=== PATIENT | female | born 1990 | race Caucasian/White ===

== ENCOUNTER → 2020-02-24 | Outpatient (CLI) | payer OTHER, SELFPAY ==
[2020-02-24 09:31] LABS: Bacteria 0 SEEN /hpf (None Seen); Mucous, Urine 0 SEEN /hpf (<or=2+); Red Blood Cells-Urine 0 SEEN /hpf (0-5); Squamous Epithelial Cells - UA 0 SEEN /hpf (5-10); White Blood Cells 0 SEEN /hpf (0-5)
[2020-02-24 10:30] LABS: Color, Urine Yellow (Yellow); Glucose, Dipstick Normal (Normal); Ketone-Dipstick Negative (Negative); Leukocyte Esterase-Dipstick Negative /ul (Negative); Nitrite-Dipstick Negative (Negative); Occult Blood-Urine Negative /ul (Negative); Protein-Dipstick Negative (Negative); Urine Bilirubin Dipstick Negative (Negative); Urine Clarity Clear (Clear); Urine Urobilinogen Normal (Normal); Urine pH 6.5 (5.0 - 8.0)
== END | disposition home or self-care (01) ==
LOC: LABSPEC 09:24
PROVIDERS: PCP Family Medicine; Referring Provider Family Medicine; Visit Provider Family Medicine
DX: N39.0 Urinary tract infection, site not specified (principal)
CPT/HCPCS: 81001; 87086

== ENCOUNTER → 2020-03-28 | Outpatient (CLI) | payer OTHER, SELFPAY ==
[2020-03-28 15:23] VITALS: BMI 20.7
[2020-04-02 15:26] LABS: HPV Reflexed? NOT INDICATED
== END | disposition home or self-care (01) ==
LOC: LABSPEC 16:40
PROVIDERS: PCP Family Medicine; Referring Provider Obstetrics & Gynecology; Visit Provider Obstetrics & Gynecology
DX: Z12.4 Encounter for screening for malignant neoplasm of cervix (principal)
CPT/HCPCS: 88175; G0145

== ENCOUNTER → 2020-08-29 | Outpatient (CLI) | payer OTHER, SELFPAY ==
[2020-08-29 12:53] VITALS: BMI 20.7
[2020-08-29 13:28] LABS: Amphetamine Urine VISTA NEGATIVE (<1000 ng/mL); Barbiturate Urine VISTA NEGATIVE (< 200 ng/mL); Benzodiazepine Urine VISTA NEGATIVE (< 200 ng/mL); Cocaine Urine VISTA NEGATIVE (< 300 ng/mL); Ecstacy Urine VISTA NEGATIVE (< 500 ng/mL); Methadone Urine VISTA NEGATIVE (< 300 ng/mL); PCP Urine VISTA NEGATIVE (< 25 ng/mL); THC Urine VISTA NEGATIVE (< 50 ng/mL); Vista UDS pH Range 6
[2020-09-04 12:36] LABS: HPV Reflexed? NOT INDICATED
== END | disposition home or self-care (01) ==
LOC: LABSPEC 12:56
PROVIDERS: PCP Family Medicine; Referring Provider Obstetrics & Gynecology; Visit Provider Obstetrics & Gynecology
DX: Z34.90 Encounter for supervision of normal pregnancy, unspecified, unspecified trimester (principal); Z12.4 Encounter for screening for malignant neoplasm of cervix
CPT/HCPCS: 80307; 87086; 87088; 87491; 87591; 88142

== ENCOUNTER → 2020-08-30 | Outpatient (CLI) | payer OTHER, SELFPAY ==
[2020-08-29 12:53] VITALS: BMI 20.7
[2020-08-30 17:38] LABS: Absolute Lymphocyte Count 2.07 X10^3/uL (0.83-4.51); Absolute Neutrophil Count 4.7 X10^3/uL (2.0-7.7); Basophil# 0.04 X10^3/uL; Basophil% 0.5 % (0-1); Eosinophil# 0.42 X10^3/uL; Eosinophils% 5.4 % (0-5); Hematocrit 37.2 % (37-47); Hemoglobin 12.2 g/dL (12.0-15.0); Lymphocyte # 2.07 X10^3/ul (4.0); Lymphocyte % 26.6 % (19-41); Mean Corp Hgb Conc 32.8 g/dL (32-36); Mean Corpuscular Hgb 30.6 pg (27.0-32.0); Mean Corpuscular Volume 93.2 fL (81-99); Mean Platelet Vol. 9.7 fl (6.2-12.0); Monocyte# 0.53 X10^3/uL; Monocyte% 6.8 % (0-10); NRBC Flagged by Analyzer 0 % (0-5); Neutrophil # 4.71 X10^3/uL (2.7-7.7); Neutrophil % 60.4 % (47-70); Platelet Count 333 K/mm3 (150-450); RBC Distribution Width CV 11.9 % (11.6-14.6); RBC Distribution Width SD 41.1 fl (35.1-43.9); Red Blood Count 3.99 M/mm3 (4.2-5.4); White Blood Count 7.8 K/mm3 (4.4-11.0)
[2020-09-02 10:25] LABS: HIV - WCH Non-Reactive (Nonreactive); Hepatitis B Surface Antigen Non-Reactive (Nonreactive); Hepatitis C Antibody Non-Reactive (Nonreactive); Rubella IgG Reactive (Nonreactive)
[2020-09-05 03:02] LABS: Rapid Plasmin Reagin (RPR) NONREACTIVE (NONREACTIVE)
== END | disposition home or self-care (01) ==
LOC: LABSPEC 16:49
PROVIDERS: PCP Family Medicine; Referring Provider Obstetrics & Gynecology; Visit Provider Obstetrics & Gynecology
DX: Z34.81 Encounter for supervision of other normal pregnancy, first trimester (principal); Z31.430 Encounter of female for testing for genetic disease carrier status for procreative management
CPT/HCPCS: 36415; 85025; 86592; 86703; 86762; 86803; 86850; 86900; 86901; 87340

== ENCOUNTER → 2021-01-02 15:24 | Outpatient (CLI) | payer OTHER, BC, SELFPAY ==
[2020-12-19 15:47] VITALS: BMI 24.0
[2021-01-02 15:51] LABS: Absolute Lymphocyte Count 1.47 X10^3/uL (0.83-4.51); Absolute Neutrophil Count 7.7 X10^3/uL (2.0-7.7); Basophil# 0.04 X10^3/uL; Basophil% 0.4 % (0-1); Eosinophil# 0.44 X10^3/uL; Eosinophils% 4.2 % (0-5); Hematocrit 31.3 % (37-47); Hemoglobin 10.2 g/dL (12.0-15.0); Lymphocyte # 1.47 X10^3/ul (0.83-4.51); Lymphocyte % 13.9 % (19-41); Mean Corp Hgb Conc 32.6 g/dL (32-36); Mean Corpuscular Hgb 31.7 pg (27.0-32.0); Mean Corpuscular Volume 97.2 fL (81-99); Monocyte# 0.79 X10^3/uL; Monocyte% 7.5 % (0-10); NRBC Flagged by Analyzer 0 % (0-5); Neutrophil # 7.74 X10^3/uL (2.7-7.7); Neutrophil % 73.1 % (47-70); Platelet Count 285 K/mm3 (150-450); RBC Distribution Width SD 46.1 fl (35.1-43.9); Red Blood Count 3.22 M/mm3 (4.2-5.4); White Blood Count 10.6 K/mm3 (4.4-11.0)
[2021-01-02 16:13] LABS: Glucose Challenge Gest 1H 50g 109 mg/dL (70-140)
== END ==
PROVIDERS: PCP Family Medicine; Referring Provider Nurse Practitioner Women's Health; Visit Provider Nurse Practitioner Women's Health
DX: Z34.02 Encounter for supervision of normal first pregnancy, second trimester (principal); Z13.1 Encounter for screening for diabetes mellitus
CPT/HCPCS: 36415; 82950; 85025

== ENCOUNTER → 2021-03-06 | Outpatient (CLI) | payer OTHER, BC, SELFPAY ==
[2021-03-06 15:50] VITALS: BMI 29.9
[2021-03-24 12:22] VITALS: BMI 29.7
== END | disposition home or self-care (01) ==
PROVIDERS: PCP Family Medicine; Referring Provider Obstetrics & Gynecology; Visit Provider Obstetrics & Gynecology
DX: Z34.93 Encounter for supervision of normal pregnancy, unspecified, third trimester (principal)
CPT/HCPCS: 87081

== ENCOUNTER 2021-03-24 12:05 | Outpatient (CLI) | payer OTHER, BC, SELFPAY ==
[2021-03-24] VITALS (10 sets, daily range): BP systolic 115–136; BP diastolic 76–85; PULSE 76–82; TEMP 36.7–36.8; O2SAT 98; BMI 29.9; BMI 29.7
[2021-03-24] MEDS: 0.9% Saline Lock 10 ML Syringe IV (12:40)
[2021-03-24 13:03] LABS: Hematocrit 32.1 % (37-47); Hemoglobin 10.3 g/dL (12.0-15.0); Mean Corp Hgb Conc 32.1 g/dL (32-36); Mean Corpuscular Hgb 29.9 pg (27.0-32.0); Mean Platelet Vol. 10.8 fl (6.2-12.0); Platelet Count 225 K/mm3 (150-450); RBC Distribution Width CV 13.4 % (11.6-14.6); RBC Distribution Width SD 45.7 fl (35.1-43.9); Red Blood Count 3.45 M/mm3 (4.2-5.4); White Blood Count 9.6 K/mm3 (4.4-11.0)
[2021-03-24 13:12] LABS: Protein, Urine (Random) 17.8 mg/dL (<11.9); Protein:Creat Ratio 605 mg/g CRE (0-200)
[2021-03-24 13:17] LABS: AST(SGOT) 25 U/L (15-37); Alanine Aminotransfer ALT/SGPT 26 U/L (13-56); Creatinine, Serum 0.48 mg/dL (0.55-1.02); EST Glomerular Filtration Rate 162 mL/min (>60); Est Glom Filt Rate - Afr Amer 196 mL/min (>60); Estimated Creatinine Clearance 141.77 ml/min
--- NOTE | 2021-03-25 18:36 | OB.TRI.PN ---
Progress Notes Date of Service: 03/24/21 Progress Note: Patient presents for triage evaluation secondary to elevated BP. BPs normal. PreE labs negative aside from elevated P:C FHT: Moderate variability reactive no decelerations category I tracing [place]: Contractions Assessment and plan: Reactive NST, reassuring maternal and status patient discharged to home to follow-up tomorrow for BP check. See problem list details for additional plan information. Laboratory Studies: Laboratory Tests 03/24/21 03/24/21 03/24/21 Range/Units 12:40 12:40 12:40 WBC 9.6 (4.4-11.0) K/mm3 RBC 3.45 L (4.2-5.4) M/mm3 Hgb 10.3 L (12.0-15.0) g/dL Hct 32.1 L (37-47) % MCV 93.0 (81-99) fL MCH 29.9 (27.0-32.0) pg MCHC 32.1 (32-36) g/dL RDW Std Deviation 45.7 H (35.1-43.9) fl RDW Coeff of Judi 13.4 (11.6-14.6) % Plt Count 225 (150-450) K/mm3 MPV 10.8 (6.2-12.0) fl Creatinine 0.48 L (0.55-1.02) mg/dL Estim Creat Clear Calc 141.77 ml/min Est GFR (MDRD) Af Amer 196 (>60) mL/min Est GFR (MDRD) Non-Af 162 (>60) mL/min Uric Acid 4.0 (2.6-6.0) mg/dL AST 25 (15-37) U/L ALT 26 (13-56) U/L U Random Total Protein 17.8 H (<11.9) mg/dL Urine Creatinine 29.40 (NO RANGE EST.) mg/dL Protein/Creatinin Ratio 605 H (0-200) mg/g CRE Charges/Coding Procedures Urinary/Genital 52xxx-59xxx: 74881-54 non-stress test Interp
== END 2021-03-24 14:27 | disposition home or self-care (01) ==
LOC: WPOUT 12:07 → WP 12:07
PROVIDERS: PCP Family Medicine; Visit Provider Obstetrics & Gynecology
DX: O26.899 Other specified pregnancy related conditions, unspecified trimester (principal); R03.0 Elevated blood-pressure reading, without diagnosis of hypertension; Z3A.00 Weeks of gestation of pregnancy not specified
CPT/HCPCS: 36415; 59025; 59050; 82565; 82570; 84156; 84450; 84460; 84550; 85027; 87426; 99218; A4216; G0378

== ENCOUNTER 2021-03-25 11:45 | Inpatient (IN) | payer OTHER, BC, SELFPAY ==
[2021-03-25] VITALS (38 sets, daily range): BP systolic 113–145; BP diastolic 58–88; PULSE 68–101; TEMP 36.6–37.1; O2SAT 97–100; BMI 29.9; BMI 29.3
[2021-03-25] MEDS: 0.9% Saline Lock 10 ML Syringe IV ×2 (11:05→16:11)
[2021-03-25 11:11] LABS: Protein, Urine (Random) 10.6 mg/dL (<11.9); Protein:Creat Ratio 592 mg/g CRE (0-200)
--- NOTE | 2021-03-25 11:20 | NURSING ---
Exam per MD in office yesterday, 03/24/21
[2021-03-25 11:21] LABS: Hematocrit 31.9 % (37-47); Hemoglobin 10.2 g/dL (12.0-15.0); Mean Corpuscular Hgb 30.2 pg (27.0-32.0); Mean Corpuscular Volume 94.4 fL (81-99); Mean Platelet Vol. 10.5 fl (6.2-12.0); Platelet Count 215 K/mm3 (150-450); RBC Distribution Width CV 13.4 % (11.6-14.6); RBC Distribution Width SD 46.4 fl (35.1-43.9); Red Blood Count 3.38 M/mm3 (4.2-5.4); White Blood Count 10.4 K/mm3 (4.4-11.0)
[2021-03-25 11:32] LABS: AST(SGOT) 20 U/L (15-37); Alanine Aminotransfer ALT/SGPT 25 U/L (13-56); Creatinine, Serum 0.47 mg/dL (0.55-1.02); EST Glomerular Filtration Rate 166 mL/min (>60); Est Glom Filt Rate - Afr Amer 200 mL/min (>60); Estimated Creatinine Clearance 144.78 ml/min; Uric Acid 3.9 mg/dL (2.6-6.0)
--- NOTE | 2021-03-25 12:48 | HP.PCM.OB_ITS ---
HPI - General General Date of Admission: 03/25/21 HPI Narrative OH LEWIS, is a 30 F at 39/4 who presents with elevated blood pressure. Blood pressure was elevated in the [facility] office and [facility] office yesterday then was elevated on a BP check today. Had elevated P:C ratio yesterday and again today. BPs normal in triage, but with elevated BPs in multiple offices and elevated P:C decision was made to admit for induction of labor for PreE without severe features. Asymptomatic aside from mild frontal headache. Maternal Data Information MARI Calculator Estimated Delivery Date Method Current WG Current Estimate 03/28/21 LMP (Certain) 39w 4d Other Estimates 03/29/21 Ultrasound #1 39w 3d PFSH PFSH Medical History Recurrent UTI Home Medications multivitamin no.47-iron fum 27 mg-folate no.1 1 mg-dha 300 mg capsule 1 cap PO DAILY 03/28/20 [History Last Taken 03/24/21 21:30 1 capsule] acetaminophen [Tylenol Extra Strength] 500 mg PO Q6H PRN 03/24/21 [History Last Taken 03/24/21 03:30] Allergy/AdvReac Type Severity Reaction Status Date / Time No Known Allergies Allergy Verified 03/25/21 11:17 Family History Grandfather Hypertension Surgical History nitza (~2004) Social History adopted: No household members: spouse housing: house current occupational status: employed current occupation: [employer] current occupational exposures/hazards: No pets and animals: No history of recent travel: Yes sexually active: No Smoking Status: Never smoker second hand exposure: Yes alcohol intake: current alcohol intake frequency: a few times a month details: not while substance use type: does not use seatbelt use: always do you feel safe at home: Yes additional social history: [place] History 1 Elective abortions Hx Para 0 Spontaneous abortions Hx # Term Pregnancies Ectopic pregnancies Hx # Pregnancies Multiple births # of living children Visit Details Expected Delivery Route/Plan Labor Preferences- CB/BF classes: done labor support person: Roberto mom- Rebeca labor intervention preferences: open pain management options preferred: epidural cut cord/dad catch: yes : yes PP control planned: discussed possible routes of delivery and associated risks: discussed possible delivery modalities and possible indications for each including R/B/A of , VAVD, and CS. questions answered. special requests: Plans covid status: non immune flu vaccine: given tdap vaccine: given rhogam: na LARC form signed: declined movement and labor precautions reviewed. Problem list reviewed and updated with the most current plan of care details and appropriate orders placed. Relevant counseling for the gestational age provided. Continue routine care and follow up unless otherwise noted in visit notes/problem list details OB Flowsheet Initial Weight: 120 lb Date -?-?-?-?-?-?-?-?-?-?-?-?- EGA Weight BP Urine Prot -?-?-?-?-?-?-?-?-?-?-?-?- Glucose FHR FuHt Pres Dilation -?-?-?-?-?-?-?-?-?-?-?-?- Effaced St Visit Note 08/29/20 -?-?-?-?-?-?-?-?-?-?-?-?- 9w 6d 123 lb (+3 lb) -?-?-?-?-?-?-?-?-?-?-?-?- 170 -?-?-?-?-?-?-?-?-?-?-?-?- SM- CRL 2.9 cm c ons with LMP 09/26/20 -?-?-?-?-?-?-?-?-?-?-?-?- 13w 6d 126 lb 2 oz (+6 lb 2 oz) 110/60 Negative -?-?-?-?-?-?-?-?-?-?-?-?- Negative 155 -?-?-?-?-?-?--?-?-?-?-?-?- SM- no vb crmap ing nl testing 10/24/20 -?-?-?-?-?-?-?-?-?-?-?-?- 17w 6d 131 lb 6 oz (+11 lb 6 oz) 100/60 Negative -?-?-?-?-?-?-?-?-?-?-?-?- Negative 146 -?-?-?-?-?-?-?-?-?-?-?-?- -No VB, LOF. N o concerns. MFM US anatomy 11/0411/21/20 -?-?-?-?-?-?-?-?-?-?-?-?- 21w 6d 140 lb 6 oz (+20 lb 6 oz) 100/58 Negative -?-?-?-?-?-?-?-?-?-?-?-?- Negative 153 -?-?-?-?-?-?-?-?-?-?-?-?- -Hx previa-den ies VB, LOF. Good FM. [facility] 11/19 for UTI and on antibiotic. Next US with MFM 12/23. 12/19/20 -?-?-?-?-?-?-?-?-?-?-?-?- 25w 6d 147 lb 6 oz (+27 lb 6 oz) 108/60 Trace -?-?-?-?-?-?-?-?-?-?-?-?- Negative 151 25 -?-?-?-?-?-?-?-?-?-?-?-?- -No VB, LOF. G ood FM. Discussed constipation. Traveling to [place] next week. 01/03/21 -?-?-?-?-?-?-?-?-?-?-?-?- 28w 0d 151 lb (+31 lb) 110/62 -?-?-?-?-?-?-?-?-?-?-?-?- 150 29 -?-?-?-?-?-?-?-?-?-?-?-?- - no vb lof go od fm no reular ctx cbc gct today tdap 01/16/21 -?-?-?-?-?-?-?-?-?-?-?-?- 29w 6d 152 lb 8 oz (+32 lb 8 oz) 110/80 Negative -?-?-?-?-?-?-?-?-?-?-?-?- Negative 145 29 -?-?-?-?-?-?-?-?-?-?-?-?- GP - no LOF, VB, DFM, ctx. Repeat US for previa next week. Going to [place] this weekend for long weekend. 01/30/21 -?-?-?-?-?-?-?-?-?-?-?-?- 31w 6d 159 lb (+39 lb) 102/68 Negative -?-?-?-?-?-?-?-?-?-?-?-?- Negative 140 32 -?-?-?-?-?-?-?-?-?-?-?-?- SM- no vb lof go od fm no reuglar ctx, has fu us for previa fu 02/13/21 -?-?-?-?-?-?-?-?-?-?-?-?- 33w 6d 160 lb (+40 lb) 130/68 -?-?-?-?-?-?-?-?-?-?-?-?- 145 34 -?-?-?-?-?-?-?-?-?-?-?-?- SM- no vb lof go od fm no regular ctx 02/27/21 -?-?-?-?-?-?-?-?-?-?-?-?- 35w 6d 136/80 Negative -?-?-?-?-?-?-?-?-?-?-?-?- Negative 140 37 -?-?-?-?-?-?-?-?-?-?-?-?- SM- no vb lof go od fm no regular ctx discussed deliveyr preferences 03/06/21 -?-?-?-?-?-?-?-?-?-?-?-?- 36w 6d 169 lb (+49 lb) 126/80 Negative -?-?-?-?-?-?-?-?-?-?-?-?- Negative 140 37 -?-?-?-?-?-?-?-?-?-?-?-?- GP - no LOF, VB, DFM, ctx. GBS today. 03/13/21 -?-?-?-?-?-?-?-?-?-?-?-?- 37w 6d 169 lb (+49 lb) 110/78 Negative -?-?-?-?-?-?-?-?-?-?-?-?- Negative 145 38 -?--?-?-?-?-?-?-?-?-?-?-?- SM- no vb lof go od fm no regular ctx 03/20/21 -?-?-?-?-?-?-?-?-?-?-?-?- 38w 6d 169 lb (+49 lb) 138/88 Negative -?-?-?-?-?-?-?-?-?-?-?-?- Negative 135 39 Cephalic 1 -?-?-?-?-?-?-?-?-?-?-?-?- 50 -2 GP - no LO F, VB, DFM, ctx. Denies complaints. 03/24/21 -?-?-?-?-?-?-?-?-?-?-?-?- 39w 3d 170 lb (+50 lb) 120/94 Negative -?-?-?-?-?-?-?-?-?-?-?-?- Negative 125 39 Cephalic 1 -?-?-?-?-?-?--?-?-?-?-?-?- 60 -2 GP - work in for elevated BP. BPs elevated in office - sent to triage for monitoring. 03/25/21 -?-?-?-?-?-?-?-?-?-?-?-?- 39w 4d 169 lb (+49 lb) 146/82 -?-?-?-?-?-?-?-?-?-?-?-?- -?-?-?-?-?-?-?-?-?-?-?-?- 03/25/21 -?-?-?-?-?-?-?-?-?-?-?-?- 39w 4d 168 lb 6.931 oz (+48 lb 6.931 oz) 130/77 113/68 119/76 120/80 133/88 -?-?-?-?-?-?-?-?-?-?-?-?- -?-?-?-?-?-?-?-?-?-?-?-?- NST FHR Rate Baby A Baseline: 130 Variability:: Moderate Accelerations:: 15 x 15 Decelerations:: None NST Reactive:: Yes FHR Category:: Category I Uterine Activity:: q5-9 min ROS Constitutional Constitutional: Reports headache(s); Denies body ache(s) or chills Eyes Eyes: Reports systems reviewed and no addt'l complaints, except as documented ENT HEENT: Reports systems reviewed and no addt'l complaints, except as documented Cardiovascular Cardiovascular: Reports systems reviewed and no addt'l complaints, except as documented Respiratory/Chest Respiratory/Chest: Reports systems reviewed and no addt'l complaints, except as documented Gastrointestinal Gastrointestinal: Reports systems reviewed and no addt'l complaints, except as documented Genitourinary Genitourinary: Reports systems reviewed and no addt'l complaints, except as documented Musculoskeletal Musculoskeletal: Reports systems reviewed and no addt'l complaints, except as documented Integumentary Integumentary: Reports systems reviewed and no addt'l complaints, except as documented Neurologic Neurologic: Reports systems reviewed and no addt'l complaints, except as documented Psychiatric Psychiatric: Reports systems reviewed and no addt'l complaints, except as documented Endocrine Endocrinology: Reports systems reviewed and no addt'l complaints, except as documented Hematologic/Lymphatic Hematologic/Lymphatic: Reports systems reviewed and no addt'l complaints, except as documented Allergic/Immunologic Allergic/Immunologic: Reports systems reviewed and no addt'l complaints, except as documented Vital Signs Vital Signs Vital Signs: 03/25/21 10:47 03/25/21 11:05 03/25/21 11:21 Temperature Temperature Source Pulse Rate 84 77 93 Blood Pressure 130/77 H 113/68 119/76 BP Systolic 130 113 119 BP Diastolic 77 68 76 03/25/21 11:35 03/25/21 11:50 03/25/21 12:00 Temperature 97.9 F Temperature Source Temporal Pulse Rate 85 92 Blood Pressure 120/80 133/88 H BP Systolic 120 133 BP Diastolic 80 88 Weight Weight: 168 lb 6.931 oz Body Mass Index (BMI) 29.3 Physical Exam Const alert, oriented x3, no apparent distress, average body habitus, healthy appearing and well nourished HEENT normocephalic and moist oral mucous membranes Head and Scalp: atraumatic Eyes PERRL and EOMs intact bilaterally Neck full ROM Resp normal respiratory effort, no retractions and no use of accessory muscles Cardio regular rate and regular rhythm GI soft to palpation, non-tender and non-distended Extremity normal to inspection and full ROM Skin no rashes or lesions noted Neuro no focal motor deficits and no sensory deficits noted Psych mental status grossly normal, affect normal, speech normal and activity/motor behavior normal Labs Labs Labs: Blood Type A POSITIVE Antibody Screen NEGATIVE Hct 31.9 % (37-47) L Hgb 10.2 g/dL (12.0-15.0) L Rubella IgG Antibody Reactive (Nonreactive) Hep Bs Antigen Non-Reactive (Nonreactive) HIV 1&2 Antibody Non-Reactive (Nonreactive) Glucose 1 Hr 50 gm 109 mg/dL (70-140) Miscellaneous Test Assessment & Plan (1) Ovarian cyst: COMMENT: Noted on anatomy scan 6mm x 6mm x 8mm needs follow up in 6 weeks (2) Recurrent UTI: COMMENT: sees Dr. Esqueda on an ATB to take after intercourse 11/21 tx per [facility]. Rpt urine culture next visit (3) Supervision of normal : QUALIFIERS: Normal : normal first Trimester: second trimester Qualified Code(s): Z34.02 - Encounter for supervision of normal first , second trimester COMMENT: PRR MARI 03/28/21 boy Spouse: Roberto (4) : QUALIFIERS: Weeks of gestation: 39 weeks Qualified Code(s): Z3A.39 - 39 weeks gestation of COMMENT: genetic- low risk and carrier- neg , declines afp screening. Anatomy normal other than previa. Fu 4 weeks. Will need pap at pp visit-pap came back unsat), Neg. GBS (5) Pre-eclampsia during in third trimester, antepartum: COMMENT: Diagnosed based on elevated BPs in [facility] offices 03/24 and [facility] office 03/25 with elevated P:C (6) Encounter for induction of labor: PLAN: Patient presents IOL, plan management for with cytotec. Pain management: plans epidural. GBS negative. Management of any complications: none I have reviewed the [facility] and made any clinically relevant updates.
[2021-03-25] MEDS: miSOPROStol 25 MCG TABLET VAGINAL (13:24)
[2021-03-25 15:55] LABS: Chlamydia Trachomatis by PCR Negative (Negative); Neisserai gonorrhoeae by PCR Negative (Negative); Probe Check PASS; Sample Adequacy Control PASS; Specimen Processing Control PASS
[2021-03-25] MEDS: Lactated Ringers 1,000 ML 50 ML IV (16:11)
[2021-03-25] MEDS: Lactated Ringers 500 ML 999 ML IV ×2 (17:42→20:40)
[2021-03-25] MEDS: 0.9% Normal Saline Single 100 ML IV.SOLN. INTRA-UTER (18:56)
[2021-03-25] MEDS: fentaNYL-bupivacaine (epidural) 100 ML BAG EPIDURAL (20:59)
[2021-03-25 23:33] LABS: ROM Internal Control Test YES-OK TO RESULT pt. (Internal QC)
[2021-03-25 23:34] LABS: ROM Patient Test POSITIVE (Negative)
[2021-03-26] VITALS (28 sets, daily range): BP systolic 113–146; BP diastolic 58–93; PULSE 76–127; TEMP 37.7; O2SAT 83–100
[2021-03-26] MEDS: Lactated Ringers 1,000 ML 200 ML IV ×4 (00:58→16:11)
[2021-03-26] MEDS: fentaNYL-bupivacaine (epidural) 100 ML BAG EPIDURAL ×5 (01:36→20:10)
[2021-03-26] MEDS: Lactated Ringers 500 ML 999 ML IV (01:37)
--- NOTE | 2021-03-26 08:38 | PCM.PN.BLA ---
Progress Note Patient seen and examined this morning. Patient comfortable with epidural. Previous exam at 0500 was 5cm, but with cervical swelling circumferentially. Cervix 5/90/0 with swelling only present on anterior lip. IUPC placed. Will start pitocin if MVUs inadequate. FHT Cat I. Continue current plan of care.
[2021-03-26] MEDS: Oxytocin 30 units/NS 500 ml 30 UNITS/500 ML IV.SOLN IV (09:44)
[2021-03-26] MEDS: Ondansetron 4 MG/2 ML Vial IV (16:06)
[2021-03-26] MEDS: DiphenhydrAMINE 50 MG/ML Syringe 25 MG IV (21:11)
[2021-03-26] MEDS: 0.9% Saline Lock 10 ML Syringe IV (21:11)
--- NOTE | 2021-03-26 23:37 | PN_ITS ---
Progress Note Came to continue to reevaluate patient. Patient has been 9 cm since 5 PM. At this point, cervix has begun to become extremely swollen circumferentially and is 8 cm due to swelling. Suspect baby is asynclitic. heart rate is category 1 with moderate variability and accelerations. Discussed with patient that given significant cervical swelling in 6 hours in active labor without cervical change I would recommend proceeding with a primary for arrest of dilation at this time. The risks, benefits, indications, and alternatives to the procedure were discussed with the patient including bleeding, infection, and visceral vascular injury. Patient voices understanding and agrees to proceed. Decision time is 11:20 PM. Given reassuring maternal and status, C- section is not emergent.
--- NOTE | 2021-03-26 23:44 | EX.PCM.OBRPT ---
Assessment & Plan (1) delivery delivered: (2) Encounter for induction of labor: (3) Pre-eclampsia during in third trimester, antepartum: COMMENT: Diagnosed based on elevated BPs in [facility] offices 03/24 and [facility] office 03/25 with elevated P:C (4) Ovarian cyst: COMMENT: Noted on anatomy scan 6mm x 6mm x 8mm needs follow up in 6 weeks (5) Recurrent UTI: COMMENT: sees Dr. Esqueda on an ATB to take after intercourse 8 tx per [facility]. Rpt urine culture next visit (6) Supervision of normal : QUALIFIERS: Normal : normal first Trimester: second trimester Qualified Code(s): Z34.02 - Encounter for supervision of normal first , second trimester COMMENT: PRR MARI 03/28/21 boy Spouse: Roberto (7) : QUALIFIERS: Weeks of gestation: 39 weeks Qualified Code(s): Z3A.39 - 39 weeks gestation of COMMENT: genetic- low risk and carrier- neg , declines afp screening. Anatomy normal other than previa. Fu 4 weeks. Will need pap at pp visit-pap came back unsat), Neg. GBS Maternal Data Information MARI Calculator Estimated Delivery Date Method Current WG Current Estimate 03/28/21 LMP (Certain) 39w 6d Other Estimates 03/29/21 Ultrasound #1 39w 5d Details Operative Information Date of Procedure: 03/26/21 Pre-Operative Diagnosis: Term , induction for preeclampsia without severe features, arrest of dilation Post-Operative Diagnosis: Same, occiput posterior, asynclitism Indications for : Sec. Arrest of Dilitation Indications Narrative: 30-year-old old G1, P0 at 39 weeks presents for induction of labor for preeclampsia without severe features. Patient was induced with Cytotec and Curry bulb followed by Pitocin. Patient had a protracted second stage of labor. She may change to 6 to 7 cm at noon then was called 9 cm at 5 PM. From this point, her cervix was noted to begin to swell significantly and she did not make further cervical change. Cervix at 11 PM was found to be 8 cm due to significant swelling circumferentially. Decision was made to proceed with a primary for arrest of dilation. Classification: MARY Procedure Type: low transverse shearer operator #1: Phyllis Hurt Type of Anesthesia: Epidural Converted to Spinal Antibiotic Given: Ancef 2 grams IV x1 and Zithromax 500 mg/5 mL X1 Drain: Curry to straight drain Estimated Blood Loss: 700 Fluids Replaced: 1000 Findings Description of Procedure: The patient is a at 39 weeks who presented for primary for arrest of dilation. Spinal anesthesia was placed without difficulty. Curry catheter was placed. The patient was placed in the dorsal supine position with leftward tilt. Patient was prepped and draped in the normal sterile fashion. Pfannenstiel skin incision was made with the scalpel and carried through to the underlying layer of fascia with the scalpel. Fascia was nicked in the midline and the incision extended laterally. The rectus bellies were dissected off superiorly and inferiorly with out complication both sharply and bluntly. The peritoneum was entered digitally. The incision was stretched and a low transverse uterine incision was made with the scalpel. The infant's head was delivered atraumatically followed by the anterior and posterior shoulders without complication the rest of the delivered. The cord was clamped and cut and the infant was handed off to awaiting nurse. The placenta was delivered spontaneously immediately following and was noted to be intact and have a three-vessel cord. The uterus was exteriorized cleared of all clots and debris, and the incision was closed in a double layer closure using #1 Monocryl. The ovaries and fallopian tubes were noted to be within normal limits. The uterus was returned to the maternal abdomen and gutters were cleared of all clots and debris. The peritoneum was closed with 3-0 Monocryl in a running fashion. Gloves were changed prior to fascial closure. Fascia was closed with 0 PDS in a running fashion. Subcutaneous tissue was copiously irrigated and the skin was closed with 3-0 Monocryl in a subcuticular fashion. Mepilex dressing was applied without complication. Patient was taken to recovery in stable condition. Presentation: Positive for Vertex and LOP Amniotic Membrane Rupture Type: Spontaneous Amniotic Fluid Description: Clear Placental Delivery Description: Spontaneous Placenta Disposition: [facility] Cord Vessel Description: 3 Vessels Cord Entanglement: None Infant A Gender: Male Delayed Cord Clamping: No Complications Risks of Surgery Discussed w/Patient: Bleeding, Anesthesia Risks, Infection and Injury to surrounding structure(s) including bowel and bladder Complications: None Procedures Urinary/Genital 52xxx-59xxx: [id number] Delivery [facility]
[2021-03-26] MEDS: Sodium Citrate/Citric Acid 30 ML UDC PO (23:49)
--- NOTE | 2021-03-26 23:54 | PCM.DC ---
Discharge Instructions Diet Discharge Diet: No restrictions Activity May resume sexual activity in: 4-6 weeks Lifting Restrictions: 20 lbs Additional Activity Instructions:: Nothing in the vagina for 4-6 weeks. You may return to work/school in 6 weeks. Dressing / Incision Call your doctor if your incision/area has: Continuous Slow Oozing, Sudden Increased Bleeding, Increased Pain/ Swelling, Increased Redness and Foul Smelling Discharge Call your doctor if you observe: Fever of 101 or Higher Suture Line Care: Avoid Pulling/Pushing and Avoid Pinching/Bending Follow Up Care When: Call to make an appointment with your doctor for an incision check in 1-2 weeks. You will also need a 6 week post- follow up appointment. Test Results: Test results from this visit will be discussed in further detail at your follow-up appointment, if applicable. Discharge Plan Admission Admit Date/Time: 03/25/21 11:45 Attending Provider: Antonina Britt Primary Care Provider: Shaquille Linares Instructions Patient Instructions: After a Discharge Orders/Prescriptions Prescriptions: New ibuprofen 800 mg tablet 800 mg PO Q8H PRN (Reason: pain) Qty: 30 RF: 1 oxycodone 5 mg capsule 5 mg PO Q6H PRN (Reason: pain) 7 Days Qty: 15 RF: 0 Continued PNV-DHA 27 mg iron-1 mg -300 mg capsule 1 cap PO DAILY RF: 0 acetaminophen 500 mg Capsule 500 mg PO Q6H PRN (Reason: Pain) RF: 0 Referrals / Follow Up: Shaquille Linares MD [Primary Care Provider] -
[2021-03-26] MEDS: Cefazolin 2 GM in 0.9% Normal Saline 100 ML IV (23:58)
[2021-03-27] VITALS (25 sets, daily range): BP systolic 95–141; BP diastolic 58–94; PULSE 88–124; RESP 16–18; TEMP 36.1–36.6; O2SAT 93–100
[2021-03-27] MEDS: Methylergonovine 0.2 MG/ML Ampul IM (00:28)
[2021-03-27] MEDS: Carboprost Tromethamine 250 MCG/ML Ampul IM (00:42)
[2021-03-27] MEDS: Oxytocin 30 units/NS 500 ml 30 UNITS/500 ML IV.SOLN 167 UNITS IV (01:25)
[2021-03-27] MEDS: Ketorolac 30 MG/ML Syringe IV ×4 (02:39→21:12)
[2021-03-27] MEDS: Lactated Ringers 1,000 ML 100 ML IV (04:37)
[2021-03-27] MEDS: Acetaminophen 500 MG Tablet 1000 MG PO ×4 (05:40→23:52)
[2021-03-27] MEDS: 0.9% Saline Lock 10 ML Syringe IV ×3 (07:59→21:12)
--- NOTE | 2021-03-27 11:45 | NURSING ---
Epidural cath out. Blue tip intact.
[2021-03-28 01:46] VITALS: BP 105/61; PULSE 87; RESP 18; O2SAT 100
[2021-03-28] MEDS: Ibuprofen 600 MG Tablet PO ×4 (01:52→20:22)
[2021-03-28] MEDS: Acetaminophen 500 MG Tablet 1000 MG PO ×3 (06:06→18:53)
[2021-03-28 06:24] LABS: Hematocrit 22.5 % (37-47); Hemoglobin 7.4 g/dL (12.0-15.0); Mean Corp Hgb Conc 32.9 g/dL (32-36); Mean Corpuscular Hgb 30.5 pg (27.0-32.0); Mean Corpuscular Volume 92.6 fL (81-99); Mean Platelet Vol. 9.8 fl (6.2-12.0); Platelet Count 228 K/mm3 (150-450); RBC Distribution Width CV 13.9 % (11.6-14.6); RBC Distribution Width SD 47.3 fl (35.1-43.9); Red Blood Count 2.43 M/mm3 (4.2-5.4); White Blood Count 18.7 K/mm3 (4.4-11.0)
[2021-03-28 08:05] VITALS: BP 123/70; PULSE 85; RESP 16; TEMP 36.1
--- NOTE | 2021-03-28 08:30 | PCM.PN.OB ---
Subjective Subjective Patient doing well without complaints. Tolerating PO. Ambulating and voiding without difficulty. Breast feeding well. Denies chest pain, shortness of breath, calf pain/swelling, fevers, chills, lightheadedness. Objective Data Objective Data Vital Signs: Vital Signs Temp Pulse Resp BP Pulse Ox 97 F L 87 18 105/61 100 03/27/21 20:58 03/28/21 01:46 03/28/21 01:46 03/28/21 01:46 03/28/21 01:46 Oxygen Delivery Method Room Air Weight: 168 lb 6.931 oz Body Mass Index (BMI) 29.3 Intake & Output: Intake and Output for Last 24 Hours 03/26/21 03/27/21 03/28/21 23:59 23:59 23:59 Intake Total 7614.23 / 7614.23 1914 / 1915 Output Total 1100 / 1100 2225 / 2225 Balance 6514.23 / 6514.23 -310 / -310 Lab / Micro Data Result Diagrams: 03/28/21 06:10 03/25/21 11:05 Labs: Laboratory Results - last 24 hr 03/28/21 06:10: WBC 18.7 H, RBC 2.43 L, Hgb 7.4 L, Hct 22.5 L, MCV 92.6, MCH 30.5, MCHC 32.9, RDW Std Deviation 47.3 H, RDW Coeff of Judi 13.9, Plt Count 228, MPV 9.8 ROS Constitutional Constitutional: Denies fever(s) Cardiovascular Cardiovascular: Denies chest pain, dyspnea or lightheadedness Gastrointestinal Gastrointestinal: Reports abdominal pain; Denies constipation or diarrhea Neurologic Neurologic: Denies dizziness or headache(s) Physical Exam Const alert, oriented x3, no apparent distress, average body habitus, healthy appearing and well nourished HEENT normocephalic Head and Scalp: atraumatic Eyes PERRL and EOMs intact bilaterally Neck full ROM Lymph Lymphatic: no lymphadenopathy noted Resp normal respiratory effort, no retractions and no use of accessory muscles Cardio regular rate GI soft to palpation, non-tender and non-distended Palpation: other Other Details: fundus firm Extremity normal to inspection and no clubbing, cyanosis or edema Skin no rashes or lesions noted Neuro no focal motor deficits and no sensory deficits noted Psych mental status grossly normal, affect normal and speech normal Assessment & Plan (1) delivery delivered: PLAN: s/p LTCS PPD # 1 1. routine post care 2. breast feeding- support given 3. rh positive 4. rubella immune
[2021-03-28] MEDS: Senna/Docusate Sodium 1 Tablet PO (10:15)
[2021-03-28 13:15] VITALS: BP 118/76; PULSE 90; RESP 16; TEMP 36.2; O2SAT 99
[2021-03-28 21:00] VITALS: BP 119/73; PULSE 94; RESP 16; TEMP 36.1
--- NOTE | 2021-03-28 22:00 | NURSING ---
report received from alexandro LANCASTER. this RN to assume care of pt at this time.
[2021-03-29 01:22] VITALS: BP 111/68; PULSE 98; RESP 14; TEMP 36.1
[2021-03-29] MEDS: Ibuprofen 600 MG Tablet PO ×4 (01:26→19:43)
[2021-03-29] MEDS: Acetaminophen 500 MG Tablet 1000 MG PO ×4 (01:27→19:43)
[2021-03-29 07:47] VITALS: BP 122/76; PULSE 80; RESP 16; TEMP 36.1; O2SAT 99
[2021-03-29] MEDS: Senna/Docusate Sodium 1 Tablet PO (10:16)
--- NOTE | 2021-03-29 10:34 | PCM.PN.OB ---
Subjective Subjective Patient doing well without complaints. Tolerating PO. Ambulating and voiding without difficulty. Breast feeding well. Denies chest pain, shortness of breath, calf pain/swelling, fevers, chills, lightheadedness. Objective Data Objective Data Vital Signs: Vital Signs Temp Pulse Resp BP Pulse Ox 97.0 F L 80 16 122/76 H 99 03/29/21 07:47 03/29/21 07:47 03/29/21 07:47 03/29/21 07:47 03/29/21 07:47 Oxygen Delivery Method Room Air Weight: 168 lb 6.931 oz Body Mass Index (BMI) 29.3 Intake & Output: Intake and Output for Last 24 Hours 03/27/21 03/28/21 03/29/21 23:59 23:59 23:59 Intake Total 1914 Output Total 2224 / 2224 Balance -310 / -310 Lab / Micro Data Result Diagrams: 03/28/21 06:10 03/25/21 11:05 ROS Constitutional Constitutional: Denies fever(s) Cardiovascular Cardiovascular: Denies chest pain, dyspnea or lightheadedness Gastrointestinal Gastrointestinal: Reports abdominal pain; Denies constipation or diarrhea Neurologic Neurologic: Denies dizziness or headache(s) Physical Exam Const alert, oriented x3, no apparent distress, average body habitus, healthy appearing and well nourished HEENT normocephalic Head and Scalp: atraumatic Eyes PERRL and EOMs intact bilaterally Neck full ROM Lymph Lymphatic: no lymphadenopathy noted Resp normal respiratory effort, no retractions and no use of accessory muscles Cardio regular rate GI soft to palpation, non-tender and non-distended Inspection: incision intact and other (dressing in place) Palpation: other Other Details: fundus firm Extremity normal to inspection and no clubbing, cyanosis or edema Skin no rashes or lesions noted Neuro no focal motor deficits and no sensory deficits noted Psych mental status grossly normal, affect normal and speech normal Assessment & Plan (1) Delivery by section: PLAN: s/p LTCS PPD # 2 1. routine post care 2. breast feeding- support given 3. rh positive 4. rubella immune 5. PreE without severe features - BP normal
[2021-03-29 14:00] VITALS: BP 125/81; PULSE 84; RESP 16; TEMP 36.2; O2SAT 98
[2021-03-29 18:30] VITALS: BP 128/85; PULSE 83; RESP 18; TEMP 36.1
--- NOTE | 2021-03-31 09:03 | DS.PCM_ITS ---
Providers Date of Admission: 03/25/21 Primary Care Physician: Dr. Shaquille Linares MD Reason For Visit: PRIMARY CSECTION Diagnosis Discharge Diagnosis (1) Delivery by section: Status: Acute Medications at Discharge Home Medications multivitamin no.47-iron fum 27 mg-folate no.1 1 mg-dha 300 mg capsule 1 cap PO DAILY 03/28/20 acetaminophen 500 mg PO Q6H PRN 03/24/21 ibuprofen 800 mg PO Q8H PRN #30 tab 03/26/21 oxycodone 5 mg PO Q6H PRN 7 Days #15 cap 03/26/21 Hospital Course Operations section Procedures None Summary of Care Provided Hospital Course: 30yo at 39 weeks who was admitted for induction for preeclampsia without severe features. She was induced with milan bulb and cytotec followed by pitocin. She became 9cm and had significant cervical swelling therefore she underwent a primary for arrest of dilation. course was uncomplicated. She was discharged to home on PPD#2 Weight / BMI Weight Weight: 168 lb 6.931 oz Body Mass Index (BMI) 29.3 ABG / Lab / Microbiology Data Result Diagrams: 03/28/21 06:10 03/25/21 11:05 D/C Instructions Discharge Diet: No restrictions May resume sexual activity in: 4-6 weeks Additional Activity Instructions: Nothing in the vagina for 4-6 weeks. You may return to work/school in 6 weeks. Call your doctor if your incision/area has: Continuous Slow Oozing, Sudden Incr eased Bleeding, Increased Pain/ Swelling, Increased Redness and Foul Smelling Discharge Call your doctor if you observe: Fever of 101 or Higher Suture Line Care: Avoid Pulling/Pushing and Avoid Pinching/Bending When: Call to make an appointment with your doctor for an incision check in 1-2 weeks. You will also need a 6 week post- follow up appointment. Meaningful Use Info Meaningful Use Diagnoses (Choose all that apply): None applicable Discharge Plan Admission Admit Date/Time: 03/25/21 11:45 Attending Provider: Antonina Britt Primary Care Provider: Shaquille Linares Instructions Forms: Information Patient Instructions: After a Discharge Orders/Prescriptions Prescriptions: New ibuprofen 800 mg tablet 800 mg PO Q8H PRN (Reason: pain) Qty: 30 RF: 1 oxycodone 5 mg capsule 5 mg PO Q6H PRN (Reason: pain) 7 Days Qty: 15 RF: 0 Continued PNV-DHA 27 mg iron-1 mg -300 mg capsule 1 cap PO DAILY RF: 0 acetaminophen 500 mg Capsule 500 mg PO Q6H PRN (Reason: Pain) RF: 0 Referrals / Follow Up: Shaquille Lianres MD [Primary Care Provider] - Disposition Disposition (needs filled in before D/C Order can be placed): Home, Self Care
== END 2021-03-29 20:55 | disposition home or self-care (01) | DRG 788 ==
LOC: WPOUT 11:48 → WP 11:48
PROVIDERS: Admitting Provider Obstetrics & Gynecology; PCP Family Medicine; Referring Provider Obstetrics & Gynecology; Visit Provider Obstetrics & Gynecology
DX: O62.1 Secondary uterine inertia (principal); O14.04 Mild to moderate pre-eclampsia, complicating childbirth; Z3A.39 39 weeks gestation of pregnancy; Z37.0 Single live birth; O34.83 Maternal care for other abnormalities of pelvic organs, third trimester; N83.209 Unspecified ovarian cyst, unspecified side
CPT/HCPCS: 59025; 59050; 82565; 82570; 84112; 84156; 84450; 84460; 84550; 85027; 86850; 86900; 86901; 87491; 87591; 99218; 99251; J7120; A4216; G0378; G0463; J2405

== ENCOUNTER → 2021-04-16 12:03 | Outpatient (CLI) | payer OTHER, BC, SELFPAY | PROVIDERS: PCP Family Medicine; Referring Provider Obstetrics & Gynecology; Visit Provider Obstetrics & Gynecology | DX: Z39.1 Encounter for care and examination of lactating mother (principal) | CPT/HCPCS: 96158; 96159 ==

== ENCOUNTER → 2022-04-27 | Outpatient (CLI) | payer BC, SELFPAY ==
[2022-04-27 11:26] LABS: Absolute Lymphocyte Count 1.96 X10^3/uL (0.83-4.51); Absolute Neutrophil Count 5.4 X10^3/uL (2.0-7.7); Basophil# 0.07 X10^3/uL; Basophil% 0.8 % (0-1); Eosinophils% 5.9 % (0-5); Hematocrit 38.1 % (37-47); Hemoglobin 12.8 g/dL (12.0-15.0); Lymphocyte # 1.96 X10^3/ul (0.83-4.51); Lymphocyte % 23.2 % (19-41); Mean Corp Hgb Conc 33.6 g/dL (32-36); Mean Corpuscular Hgb 30.5 pg (27.0-32.0); Mean Corpuscular Volume 90.9 fL (81-99); Mean Platelet Vol. 9.4 fl (6.2-12.0); Monocyte# 0.48 X10^3/uL; Monocyte% 5.7 % (0-10); NRBC Flagged by Analyzer 0 % (0-5); Neutrophil # 5.41 X10^3/uL (2.7-7.7); Neutrophil % 64.2 % (47-70); Platelet Count 369 K/mm3 (150-450); RBC Distribution Width CV 13.2 % (11.6-14.6); RBC Distribution Width SD 43.8 fl (35.1-43.9); Red Blood Count 4.19 M/mm3 (4.2-5.4); White Blood Count 8.4 K/mm3 (4.4-11.0)
[2022-04-27 11:32] LABS: NATERA MAILED SPECIMEN
[2022-04-27 11:49] LABS: ALB/GLOB Ratio 0.9 RATIO (0.9-2.4); AST(SGOT) 19 U/L (15-37); Alanine Aminotransfer ALT/SGPT 34 U/L (13-56); Albumin, Serum 3.7 g/dL (3.2-5.0); Alkaline Phosphatase 72 U/L (45-117); Anion Gap 5 (5-15); BUN 9 mg/dL (7-18); BUN/Creat Ratio 16.9 RATIO (10-20); Calcium,Total 9.6 mg/dL (8.5-10.1); Chloride 105 mmol/L (98-107); Creatinine, Serum 0.53 mg/dL (0.55-1.02); EST Glomerular Filtration Rate 141 mL/min (>60); Est Glom Filt Rate - Afr Amer 171 mL/min (>60); Globulin 4.1 g/dL (2.2-4.2); Glucose 81 mg/dL (74-106); Potassium 3.6 mmol/L (3.5-5.1); Protein, Total 7.8 g/dL (6.4-8.2); Sodium Level 137 mmol/L (136-145)
[2022-04-27 12:20] LABS: Amphetamine Urine VISTA NEGATIVE (<1000 ng/mL); Barbiturate Urine VISTA NEGATIVE (< 200 ng/mL); Benzodiazepine Urine VISTA NEGATIVE (< 200 ng/mL); Cocaine Urine VISTA NEGATIVE (< 300 ng/mL); Ecstacy Urine VISTA NEGATIVE (< 500 ng/mL); Methadone Urine VISTA NEGATIVE (< 300 ng/mL); PCP Urine VISTA NEGATIVE (< 25 ng/mL); Protein, Urine (Random) < 6.0 mg/dL (<11.9); THC Urine VISTA NEGATIVE (< 50 ng/mL); Vista UDS pH Range 7
[2022-04-27 12:27] LABS: HIV - WCH Non-Reactive (Nonreactive); Hepatitis B Surface Antigen Non-Reactive (Nonreactive); Hepatitis C Antibody Non-Reactive (Nonreactive); Rubella IgG Reactive (Nonreactive); Syphilis Antibodies Non-reactive
[2022-04-29 00:06] LABS: Chlamydia By Nucleic Acid AMP Negative (Negative)
[2022-04-29 11:47] LABS: Gonococcus By Nucleic Acid AMP Negative (Negative)
[2022-04-30 16:34] LABS: HPV APTIMA, High Risk Negative (Negative)
== END | disposition home or self-care (01) ==
PROVIDERS: PCP Family Medicine; Referring Provider Obstetrics & Gynecology; Visit Provider Obstetrics & Gynecology
DX: O09.299 Supervision of pregnancy with other poor reproductive or obstetric history, unspecified trimester (principal); Z12.4 Encounter for screening for malignant neoplasm of cervix; Z3A.00 Weeks of gestation of pregnancy not specified
CPT/HCPCS: 36415; 80053; 80307; 82570; 84156; 85025; 86703; 86762; 86780; 86803; 86850; 86900; 86901; 87086; 87088; 87340; 87491; 87591; 87624; 88175; G0145

== ENCOUNTER → 2022-08-20 | Outpatient (CLI) | payer BC, SELFPAY ==
[2022-08-20 13:40] LABS: Absolute Lymphocyte Count 1.63 X10^3/uL (0.83-4.51); Absolute Neutrophil Count 8.7 X10^3/uL (2.0-7.7); Basophil# 0.07 X10^3/uL; Basophil% 0.6 % (0-1); Eosinophil# 0.85 X10^3/uL; Eosinophils% 7.1 % (0-5); Hematocrit 32.4 % (37-47); Hemoglobin 10.5 g/dL (12.0-15.0); Lymphocyte # 1.63 X10^3/ul (0.83-4.51); Lymphocyte % 13.6 % (19-41); Mean Corp Hgb Conc 32.4 g/dL (32-36); Mean Corpuscular Hgb 29.6 pg (27.0-32.0); Mean Corpuscular Volume 91.3 fL (81-99); Mean Platelet Vol. 9.4 fl (6.2-12.0); Monocyte# 0.66 X10^3/uL; Monocyte% 5.5 % (0-10); NRBC Flagged by Analyzer 0 % (0-5); Neutrophil # 8.71 X10^3/uL (2.7-7.7); Neutrophil % 72.5 % (47-70); Platelet Count 289 K/mm3 (150-450); RBC Distribution Width CV 13.6 % (11.6-14.6); RBC Distribution Width SD 45.7 fl (35.1-43.9); Red Blood Count 3.55 M/mm3 (4.2-5.4)
== END | disposition home or self-care (01) ==
LOC: LAB 12:04
PROVIDERS: PCP Family Medicine; Referring Provider Obstetrics & Gynecology; Visit Provider Obstetrics & Gynecology
DX: O09.90 Supervision of high risk pregnancy, unspecified, unspecified trimester (principal)
CPT/HCPCS: 36415; 85025

== ENCOUNTER → 2022-08-24 | Outpatient (CLI) | payer BC, SELFPAY ==
[2022-08-24 16:45] LABS: Absolute Lymphocyte Count 1.45 X10^3/uL (0.83-4.51); Absolute Neutrophil Count 8.8 X10^3/uL (2.0-7.7); Basophil# 0.05 X10^3/uL; Basophil% 0.4 % (0-1); Eosinophil# 0.68 X10^3/uL; Eosinophils% 5.8 % (0-5); Hematocrit 32.4 % (37-47); Hemoglobin 10.3 g/dL (12.0-15.0); Lymphocyte # 1.45 X10^3/ul (0.83-4.51); Lymphocyte % 12.3 % (19-41); Mean Corp Hgb Conc 31.8 g/dL (32-36); Mean Corpuscular Hgb 28.7 pg (27.0-32.0); Mean Corpuscular Volume 90.3 fL (81-99); Mean Platelet Vol. 9.4 fl (6.2-12.0); Monocyte# 0.72 X10^3/uL; Monocyte% 6.1 % (0-10); NRBC Flagged by Analyzer 0 % (0-5); Neutrophil # 8.78 X10^3/uL (2.7-7.7); Neutrophil % 74.7 % (47-70); Platelet Count 300 K/mm3 (150-450); RBC Distribution Width CV 13.5 % (11.6-14.6); RBC Distribution Width SD 44.3 fl (35.1-43.9); Red Blood Count 3.59 M/mm3 (4.2-5.4); White Blood Count 11.8 K/mm3 (4.4-11.0)
[2022-08-24 17:13] LABS: Glucose Challenge Gest 1H 50g 87 mg/dL (70-140)
[2022-08-24 17:31] LABS: ALB/GLOB Ratio 0.7 RATIO (0.9-2.4); AST(SGOT) 24 U/L (15-37); Alanine Aminotransfer ALT/SGPT 35 U/L (13-56); Albumin, Serum 2.7 g/dL (3.2-5.0); Alkaline Phosphatase 131 U/L (45-117); Anion Gap 7 (5-15); BUN 7 mg/dL (7-18); BUN/Creat Ratio 13.3 RATIO (10-20); Chloride 106 mmol/L (98-107); Creatinine, Serum 0.53 mg/dL (0.55-1.02); EST Glomerular Filtration Rate 143 mL/min (>60); Est Glom Filt Rate - Afr Amer 174 mL/min (>60); Globulin 3.8 g/dL (2.2-4.2); Glucose 90 mg/dL (74-106); Protein, Total 6.5 g/dL (6.4-8.2); Sodium Level 139 mmol/L (136-145)
[2022-08-24 17:52] LABS: HIV - WCH Non-Reactive (Nonreactive); Syphilis Antibodies Non-reactive
== END | disposition home or self-care (01) ==
LOC: LAB 13:52
PROVIDERS: Obstetrics & Gynecology; PCP Family Medicine; Visit Provider Obstetrics & Gynecology
DX: O09.90 Supervision of high risk pregnancy, unspecified, unspecified trimester (principal); Z13.1 Encounter for screening for diabetes mellitus
CPT/HCPCS: 36415; 80053; 82950; 85025; 86703; 86780

== ENCOUNTER → 2022-10-26 | Outpatient (CLI) | payer BC, SELFPAY | END | disposition home or self-care (01) | PROVIDERS: PCP Family Medicine; Visit Provider Obstetrics & Gynecology | DX: O09.90 Supervision of high risk pregnancy, unspecified, unspecified trimester (principal); Z3A.00 Weeks of gestation of pregnancy not specified | CPT/HCPCS: 87081 ==

== ENCOUNTER 2022-11-12 05:19 | Inpatient (IN) | payer BC, SELFPAY ==
[2022-11-12] VITALS (21 sets, daily range): BP systolic 98–120; BP diastolic 52–85; PULSE 55–132; RESP 10–18; TEMP 36.1–36.8; O2SAT 94–100; BMI 27.6
[2022-11-12] MEDS: Lactated Ringers 1,000 ML 999 ML IV (05:30)
[2022-11-12 05:57] LABS: Absolute Lymphocyte Count 1.87 X10^3/uL (0.83-4.51); Absolute Neutrophil Count 6.5 X10^3/uL (2.0-7.7); Basophil# 0.06 X10^3/uL; Basophil% 0.6 % (0-1); Eosinophil# 0.35 X10^3/uL; Eosinophils% 3.7 % (0-5); Hemoglobin 11.5 g/dL (12.0-15.0); Lymphocyte # 1.87 X10^3/ul (0.83-4.51); Lymphocyte % 19.9 % (19-41); Mean Corp Hgb Conc 31.1 g/dL (32-36); Mean Corpuscular Hgb 27.9 pg (27.0-32.0); Mean Corpuscular Volume 89.8 fL (81-99); Mean Platelet Vol. 10.6 fl (6.2-12.0); Monocyte# 0.56 X10^3/uL; NRBC Flagged by Analyzer 0 % (0-5); Neutrophil # 6.52 X10^3/uL (2.7-7.7); Neutrophil % 69.4 % (47-70); POSITIVE MORPHOLOGY YES; Platelet Count 263 K/mm3 (150-450); RBC Distribution Width CV 20.3 % (11.6-14.6); RBC Distribution Width SD 66.3 fl (35.1-43.9); Red Blood Count 4.12 M/mm3 (4.2-5.4); White Blood Count 9.4 K/mm3 (4.4-11.0)
[2022-11-12 06:01] LABS: Differential Indicated SCAN CRITERIA MET
[2022-11-12 06:30] LABS: Anisocytosis 1+; Differential Comment SCANNED
[2022-11-12] MEDS: Lactated Ringers 1,000 ML 150 ML IV (06:32)
[2022-11-12] MEDS: Sodium Citrate/Citric Acid 30 ML UDC PO (06:33)
[2022-11-12] MEDS: Acetaminophen 500 MG Tablet 1000 MG PO ×3 (06:33→18:20)
[2022-11-12] MEDS: Cefazolin 2 GM in 0.9% Normal Saline 100 ML IV (07:00)
[2022-11-12 08:14] LABS: Syphilis Antibodies Non-reactive
[2022-11-12] MEDS: Oxytocin 15 Units/NS 250ml 15 UNITS/250 ML IV.SOLN 83 UNITS IV (08:15)
--- NOTE | 2022-11-12 08:29 | HP.PCM.OB_ITS ---
HPI - General General Date of Admission: 11/12/22 HPI Narrative OH LEWIS, is a 32 F who presents for [facility] Maternal Data Information MARI Calculator Estimated Delivery Date Method Current WG Current Estimate 11/17/22 LMP (Certain) 39w 2d PFSH PFSH Medical History (Updated 11/12/22 @ 06:00 by Shavonne Mayorga) History of macrosomia in infant in prior , currently macrosomia Pre-eclampsia Pre-eclampsia during in third trimester, antepartum Recurrent UTI Home Medications aspirin 81 mg tablet,delayed release (Adult Low Dose Aspirin) 81 mg PO DAILY history of pre e 08/24/22 [History Last Taken 11/10/22] 1 tab PO/SL DAILY Check with primary doctor 11/12/22 [History Last Taken Unknown] iron 1 tab PO/SL DAILY Check with primary doctor 11/12/22 [History Last Taken Unknown] Allergy/AdvReac Type Severity Reaction Status Date / Time No Known Allergies Allergy Verified 11/09/22 15:58 Family History Grandfather Hypertension Surgical History nitza (~2004) Delivery by section Social History adopted: No household members: spouse housing: house current occupational status: employed current occupation: [employer] current occupational exposures/hazards: No pets and animals: No history of recent travel: Yes ([place] in February) out of state: Yes out of country: No sexually active: No Smoking Status: Former smoker second hand exposure: Yes alcohol intake: former details: not while substance use type: does not use well-balanced diet: daily or most days caffeine: Yes Type: coffee Number of servings: 1 eating out: 1-3 times/week during the past year weight has: remained stable what type of physical activity do you participate in: none azael/orthodox: Evangelical seatbelt use: always do you feel safe at home: Yes additional social history: [employer] History 2 Elective abortions Hx Para 1 Spontaneous abortions Hx # Term Pregnancies Ectopic pregnancies Hx # Pregnancies Multiple births # of living children 1 Past Pregnancies Del. Date Name GA/Weeks Outcome Route Bth Weight Gen Labor Lgth Anesthesia Del Bentleyatn Provider FOB 03/26/21 Mahesh 39 live - full term 9lbs 10oz [facility] Balwinder Delivery Date: 03/26/21 Last Updated by: Megan Zafar IOL for PreE without severe features. csection for arrest of dilation. Visit Details Expected Delivery Route/Plan RLTCS at 39 unless spontaneous labor prior patient counseled regarding risks/benefits of trial of labor versus repeat . ACOG/uptodate education given to patient. 58 % likelihood of success per calculator TOLAC consent form signed: [] Plans Covid status: covid vaccine x2. Flu vaccine: given Tdap vaccine: given Rhogam: NA LARC form signed: Yes movement and labor precautions reviewed. Problem list reviewed and updated with the most current plan of care details and appropriate orders placed. Relevant counseling for the gestational age provided. Continue routine care and follow up unless otherwise noted in visit notes/problem list details OB Flowsheet Initial Weight: Not Recorded Date -?-?-?-?-?-?-?-?-?-?-?-?- EGA Weight BP Urine Prot -?-?-?-?-?-?-?-?-?-?-?-?- Glucose FHR FuHt Pres Dilation -?-?-?-?-?-?-?-?-?-?-?-?- Effaced St Visit Note 04/27/22 -?-?-?-?-?-?-?-?-?-?-?-?- 10w 6d 118 lb 6 oz 109/74 -?-?-?-?-?-?-?-?-?-?-?-?- 160 -?-?-?-?-?-?-?-?-?-?-?-?- SM- CRL cons wit h LMP 3.86 cm 05/25/22 -?-?-?-?-?-?-?-?-?-?-?-?- 14w 6d 124 lb 4 oz 106/70 Nega tive -?-?-?-?-?-?-?-?-?-?-?-?- Negative 160 14 -?-?-?-?-?-?-?-?-?-?-?-?- LC- feeling well . no vb. declines afp. has anatomy scan ordered. 06/25/22 -?-?-?-?-?-?-?-?-?-?-?-?- 19w 2d 124 lb 4 oz 109/72 Nega tive -?-?-?-?-?-?-?-?-?-?-?-?- Negative 150 20 -?-?-?-?-?-?-?-?-?-?-?-?- JV- no complaint today. anatomy ultrasound entered into emr and is normal. 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 She is undecided about . 07/20/22 -?-?-?-?-?-?-?-?-?-?-?-?- 22w 6d 134 lb 6 oz 97/66 Nega tive -?-?-?-?-?-?-?-?-?-?-?-?- Negative 145 22 -?-?-?-?-?-?-?-?-?-?-?-?- SM- no vb lof go od fm n oregular ctx schedule cs for 39 weeks 08/24/22 -?-?-?-?-?-?-?-?-?-?-?-?- 27w 6d 139 lb 6 oz 116/68 Nega tive -?-?-?-?-?-?-?-?-?-?-?-?- Negative 148 27 -?-?-?-?-?-?-?-?-?-?-?-?- MH-No Vb, LOF. G ood FM. 28 wk labs, [facility]. 09/07/22 -?-?-?-?-?-?-?-?-?-?-?-?- 29w 6d 141 lb 108/65 Negative -?-?-?-?-?-?-?-?-?-?-?-?- Negative 145 30 -?-?-?-?-?-?-?-?-?-?-?-?- SM- no vb lof go od fm no regular ctx 09/21/22 -?-?-?-?-?-?-?-?-?-?-?-?- 31w 6d 147 lb 4 oz 111/62 Nega tive -?-?-?-?-?--?-?-?-?-?-?-?- Negative 140 32 -?-?-?-?-?-?-?-?-?-?-?-?- SM- no vb lof go od fm nor egular ctx 10/05/22 -?-?-?-?-?-?-?-?-?-?-?-?- 33w 6d 150 lb 4 oz 110/70 Nega tive -?-?-?-?-?-?-?-?-?-?-?-?- Negative 145 34 -?-?-?-?-?-?-?-?-?-?-?-?- Lc- no lof/vb/ct x. good fm. reviewed r/b of vs rpt c/s. growth scan ordered for 36 weeks 10/19/22 -?-?-?-?-?-?-?-?-?-?-?-?- 35w 6d 153 lb 108/66 Negative -?-?-?-?-?-?-?-?-?-?-?-?- Negative 159 35 -?-?-?-?-?-?-?-?-?-?-?-?- MH-No VB, LOF. G ood FM. Growth US 10/2110/26/22 -?-?-?-?-?-?-?-?-?-?-?-?- 36w 6d 156 lb 4 oz 118/81 Nega tive -?-?--?-?-?-?-?-?-?-?-?-?- Negative 140 36 Cephalic 1 -?-?-?-?-?-?-?-?-?-?-?-?- SM- no vb lof go od fm no regular ctx 11/05/22 -?-?-?-?-?-?-?-?-?-?-?-?- 38w 2d 154 lb 8 oz 122/75 1+ -?-?-?-?-?-?-?-?-?-?-?-?- Negative 144 37 Cephalic 1 -?-?-?-?-?-?-?-?-?-?-?-?- 0 -2 JV-no lof, vaginal bleeding, or dec fm. has rpt section scheduled but wants to if labor happens before then. 11/09/22 -?-?-?-?-?-?-?-?-?-?-?-?- 38w 6d 157 lb 2 oz 122/77 Nega tive -?-?-?--?-?-?-?-?-?-?-?-?- Negative 140 39 Cephalic 1 .5 -?-?-?-?-?-?-?-?-?-?-?-?- 50 -3 SM- no vb lof good fm no regular ctx. 11/12/22 -?-?-?-?-?-?-?-?-?-?-?-?- 39w 2d 156 lb 114/76 114/55 118/71 110/85 107/64 106/68 104/60 104/67 112/58 114/59 -?-?-?-?-?-?-?-?-?-?-?-?- -?-?-?-?-?-?-?-?-?-?-?-?- NST FHR Rate Baby A Baseline: 130 Uterine Activity:: irregular ROS Constitutional Constitutional: Reports systems reviewed and no addt'l complaints, except as documented Eyes Eyes: Denies change in vision ENT HEENT: Reports systems reviewed and no addt'l complaints, except as documented; Denies headache(s) Cardiovascular Cardiovascular: Reports systems reviewed and no addt'l complaints, except as documented; Denies chest pain or dyspnea Respiratory/Chest Respiratory/Chest: Reports systems reviewed and no addt'l complaints, except as documented Gastrointestinal Gastrointestinal: Reports systems reviewed and no addt'l complaints, except as documented; Denies abdominal pain Genitourinary Genitourinary: Reports systems reviewed and no addt'l complaints, except as documented, contractions Details: present (irregular) and movement Details: present; Denies dysuria or genital lesions Musculoskeletal Musculoskeletal: Reports systems reviewed and no addt'l complaints, except as documented Neurologic Neurologic: Reports systems reviewed and no addt'l complaints, except as documented Endocrine Endocrinology: Reports systems reviewed and no addt'l complaints, except as documented Vital Signs Vital Signs Vital Signs: 11/12/22 05:35 11/12/22 05:35 11/12/22 05:40 Temperature Temperature Source Pulse Rate 88 132 H Respiratory Rate Blood Pressure Blood Pressure Mean Blood Pressure Source Blood Pressure Position Blood Pressure Location Pulse Ox 98 Oxygen Delivery Method 11/12/22 05:40 11/12/22 05:45 11/12/22 05:45 Temperature Temperature Source Pulse Rate 81 Respiratory Rate Blood Pressure Blood Pressure Mean Blood Pressure Source Blood Pressure Position Blood Pressure Location Pulse Ox 98 98 Oxygen Delivery Method 11/12/22 05:53 Temperature 98.1 F Temperature Source Temporal Pulse Rate 98 Respiratory Rate 18 Blood Pressure 114/76 Blood Pressure Mean 88 Blood Pressure Source Monitor Blood Pressure Position Semi-Fowlers Blood Pressure Location Right Arm Pulse Ox 98 Oxygen Delivery Method Room Air Weight Weight: 156 lb Body Mass Index (BMI) 27.6 Physical Exam Const alert, oriented x3, no apparent distress and healthy appearing HEENT normocephalic and moist oral mucous membranes Head and Scalp: atraumatic Neck full ROM, no lymphadenopathy, supple and thyroid normal General: trachea midline Lymph Lymphatic: no lymphadenopathy noted Chest inspection of chest normal Resp normal respiratory effort Cardio regular rate GI normal to inspection, nondistended, normoactive bowel sounds, soft to palpation and non-tender Inspection: gravid external exam normal Manual OB Exam: estimated gestational size appropriate, presentation cephalic, dilated, effaced and station Extremity normal to inspection General Extremity: Negative for edema Skin no rashes or lesions noted Neuro no focal motor deficits and deep tendon reflexes 2+ bilaterally Motor Exam: strength 5/5 throughout and clonus absent Psych mental status grossly normal Labs Labs Labs: Blood Type A POSITIVE Antibody Screen NEGATIVE Hct 37.0 % (37-47) Hgb 11.5 g/dL (12.0-15.0) L Syphilis Total Ab Non-reactive Rubella IgG Antibody Reactive (Nonreactive) Hep Bs Antigen Non-Reactive (Nonreactive) Chlamydia DNA (FAHAD) Negative (Negative) Neisseria gonorrhoeae DNA (FAHAD) Negative (Negative) HIV 1&2 Antibody Non-Reactive (Nonreactive) Glucose 1 Hr 50 gm 87 mg/dL (70-140) Rhogam given: No Miscellaneous Test Assessment & Plan (1) History of macrosomia in infant in prior , currently : (2) Need for Tdap vaccination: COMMENT: Given 09/07/22 (3) History of pre-eclampsia in prior , currently : COMMENT: baseline labs ordered, recommend and is taking baby ASA after 14 weeks. (4) Supervision of high risk , antepartum: COMMENT: PRR , Mari 11/17/22, girl PC Mahesh Spouse Roberto (5) : QUALIFIERS: Weeks of gestation: 38 weeks Qualified Code(s): Z3A.38 - 38 weeks gestation of COMMENT: GBs neg, anatomy nl, GIRL!! low risk NIPt. declined afp and carrier testing. PLAN: Plan plan RLTCS
--- NOTE | 2022-11-12 08:30 | EX.PCM.OBRPT ---
Assessment & Plan (1) delivery delivered: COMMENT: AGNIESZKA RLTCS girl Martha 39 Maternal Data Information MARI Calculator Estimated Delivery Date Method Current WG Current Estimate 11/17/22 LMP (Certain) 39w 6d Final MARI Source: LMP Details Operative Information Date of Procedure: 11/12/22 Pre-Operative Diagnosis: Previous Post-Operative Diagnosis: same Indications for : Repeat Elective Indications Narrative: Surgeon: Laura Cohn MD Classification: Scheduled Procedure Type: low transverse Type of Anesthesia: Spinal Special Medications: none Antibiotic Given: Ancef 2 grams IV x1 Drain: Curry to straight drain Estimated Blood Loss: 600 Fluids Replaced: crystalloid Findings Description of Procedure: Spinal anesthesia was placed without difficulty. Curry catheter was placed. The patient was placed in the dorsal supine position with leftward tilt. Patient was prepped and draped in the normal sterile fashion. Pfannenstiel skin incision was made with the scalpel and carried through to the underlying layer of fascia with the scalpel. Fascia was nicked in the midline and the incision extended laterally. The rectus bellies were dissected off superiorly and inferiorly with out complication both sharply and bluntly. The peritoneum was entered digitally. The incision was stretched and a low transverse uterine incision was made with the scalpel. The infant's head was delivered atraumatically followed by the anterior and posterior shoulders without complication the rest of the infant delivered. The cord was clamped and cut and the was handed off to awaiting nurse. The placenta was delivered spontaneously immediately following and was noted to be intact and have a three-vessel cord. The uterus was exteriorized cleared of all clots and debris, and the incision was closed in a double layer closure using #1 Monocryl. The ovaries and fallopian tubes were noted to be within normal limits. The uterus was returned to the maternal abdomen and gutters were cleared of all clots and debris. The peritoneum was closed with 3-0 Monocryl in a running fashion. Gloves were changed prior to fascial closure. Fascia was closed with 0 PDS in a running fashion. Subcutaneous tissue was copiously irrigated and the skin was closed with 3-0 Monocryl in a subcuticular fashion. Mepilex dressing was applied without complication. Patient was taken to recovery in stable condition. It was discussed with the patient that based on the clinical information obtained during this encounter, combined with her history, at this time I would recommend cesareans for future deliveries if further pregnancies are desired. Amniotic Membrane Rupture Type: Artificial Amniotic Fluid Description: Clear Placenta Disposition: [facility] Cord Vessel Description: 3 Vessels Delayed Cord Clamping: Yes Complications Risks of Surgery Discussed w/Patient: Bleeding, Infection, Need for Future C-Sections and Injury to surrounding structure(s) including bowel and bladder Vaginal Delivery Complication Complications: None Admit VTE Documentation VTE Present on Admission: No VTE Mechan Device Prophylaxis: SCD's Procedures Urinary/Genital [id number]: 60722 Delivery [facility]
[2022-11-12] MEDS: Ketorolac 30 MG/ML Syringe IV ×3 (09:03→20:10)
[2022-11-12] MEDS: Lactated Ringers 1,000 ML 100 ML IV (11:36)
[2022-11-12] MEDS: 0.9% Saline Lock 10 ML Syringe IV (20:10)
--- NOTE | 2022-11-12 20:36 | NURSING ---
During 1999 assessment, pt due to void and when feeling fundus, pt said bladder felt full and fundus was +1 above U , right of midline. Pt attempted prior to use restroom with no luck. Pt was going to take a warm shower and Assess from there.
--- NOTE | 2022-11-12 21:45 | NURSING ---
Pt was in shower trying to see if she could void. Stated she could get a little out but not fully able to relieve her bladder. Does not feel as much pressure and wants to try to use the bathroom again before needing to be straight cathed. This RN educated about not wanting to go too long with keeping her bladder full before n it emptied.
[2022-11-13] MEDS: Acetaminophen 500 MG Tablet 1000 MG PO ×3 (00:16→12:02)
[2022-11-13 00:20] VITALS: BP 112/66; PULSE 65; RESP 18; TEMP 36.5
[2022-11-13] MEDS: Ketorolac 30 MG/ML Syringe IV (02:19)
[2022-11-13] MEDS: 0.9% Saline Lock 10 ML Syringe IV (02:20)
[2022-11-13 04:45] VITALS: BP 103/60; PULSE 71; RESP 17; TEMP 36.2; O2SAT 98
[2022-11-13 05:01] LABS: Hematocrit 33.5 % (37-47); Hemoglobin 10.4 g/dL (12.0-15.0); Mean Corpuscular Hgb 28.3 pg (27.0-32.0); Mean Platelet Vol. 9.9 fl (6.2-12.0); POSITIVE MORPHOLOGY YES; Platelet Count 221 K/mm3 (150-450); RBC Distribution Width SD 67.2 fl (35.1-43.9); Red Blood Count 3.68 M/mm3 (4.2-5.4); White Blood Count 10.4 K/mm3 (4.4-11.0)
[2022-11-13 05:02] LABS: Scan Indicated on CBC? Y/N YES- FLAGS NOTED
[2022-11-13 05:24] LABS: Differential Comment SCANNED
--- NOTE | 2022-11-13 07:54 | PCM.PN.OB ---
Subjective Subjective Patient doing well without complaints. Tolerating PO. Ambulating and voiding without difficulty. Feeding well. Denies chest pain, shortness of breath, calf pain/swelling, fevers, chills, lightheadedness. Objective Data Objective Data Vital Signs: Vital Signs Temp Pulse Resp BP Pulse Ox O2 Del Method 97.1 F L 71 17 103/60 98 Room Air 11/13/22 04:45 11/13/22 04:45 11/13/22 04:45 11/13/22 04:45 11/13/22 04:45 11/13/22 04:45 Oxygen Delivery Method Room Air Weight: 156 lb Body Mass Index (BMI) 27.6 Intake & Output: Intake and Output for Last 24 Hours 11/11/22 11/12/22 11/13/22 23:59 23:59 23:59 Intake Total 4962.33 / 4962.33 Output Total 2300 / 2300 600 / 600 Balance 2662.33 / 2662.33 -600 / -600 Lab / Micro Data Attestation: I reviewed the patient's lab results. Result Diagrams: 11/13/22 04:50 Labs: Laboratory Results - last 24 hr 11/12/22 05:40: Syphilis Total Ab Non-reactive 11/13/22 04:50: WBC 10.4, RBC 3.68 L, Hgb 10.4 L, Hct 33.5 L, MCV 91.0, MCH 28.3, MCHC 31.0 L, RDW Std Deviation 67.2 H, RDW Coeff of Judi 20.0 H, Plt Count 221, MPV 9.9, Differential Comment SCANNED ROS Constitutional Constitutional: Reports systems reviewed and no addt'l complaints, except as documented; Denies anorexia or headache(s) Cardiovascular Cardiovascular: Reports systems reviewed and no addt'l complaints, except as documented; Denies dizziness, dyspnea, nausea or tachypnea Respiratory/Chest Respiratory/Chest: Reports systems reviewed and no addt'l complaints, except as documented; Denies cough, dyspnea, shortness of breath at rest or tachypnea Gastrointestinal Gastrointestinal: Reports systems reviewed and no addt'l complaints, except as documented; Denies abdominal pain, constipation or nausea Genitourinary Genitourinary: Reports systems reviewed and no addt'l complaints, except as documented; Denies burning urination, difficulty urinating, dysuria, urinary frequency or urinary incontinence Musculoskeletal Musculoskeletal: Reports systems reviewed and no addt'l complaints, except as documented Integumentary Integumentary: Reports systems reviewed and no addt'l complaints, except as documented Neurologic Neurologic: Reports systems reviewed and no addt'l complaints, except as documented; Denies abnormal speech, dizziness or headache(s) Psychiatric Psychiatric: Reports systems reviewed and no addt'l complaints, except as documented Endocrine Endocrinology: Reports systems reviewed and no addt'l complaints, except as documented Hematologic/Lymphatic Hematologic/Lymphatic: Reports systems reviewed and no addt'l complaints, except as documented Physical Exam Const alert, oriented x3 and no apparent distress Neck full ROM Resp normal respiratory effort, normal air movement and no retractions Effort and Inspection: able to speak in complete sentences and symmetric chest movement GI soft to palpation Bladder / Kidney Exam: bladder normal to palpation Uterus Palpation: uterus fundus firm (U1) Extremity normal to inspection and full ROM Psych mental status grossly normal, thought process normal and cooperative Assessment & Plan (1) Supervision of high risk , antepartum: COMMENT: PRR , Scot 11/17/22, girl PC Mahesh Spouse Roberto PLAN: s/p LTCS PPD # 1 1. routine post care 2. breast feeding- support given 3. rh positive 4. rubella immune 5. ok for discharge today Charges/Coding Multi Select Codes Urinary/Genital Urinary/Genital CPT Codes: No Charge
--- NOTE | 2022-11-13 07:57 | DCINST_ITS ---
Discharge Instructions Diet Discharge Diet: No restrictions Activity Discharge Activity: May Not Drive and May Shower Dressing / Incision Call your doctor if your incision/area has: Continuous Slow Oozing, Sudden Increased Bleeding, Increased Pain/ Swelling, Increased Redness, Foul Smelling Discharge and Swelling at the incision site Call your doctor if you observe: Fever of 101 or Higher, Numbness or Tingling, Change in Color, Inability to urinate, Inability to have a bowel movement, Using more than 1 pad per hour, Shortness of breath, Dizziness, Fainting spells, Swelling in the ankles, Chest pain, Increased palpitations (irregular heartbeat), Calf discomfort and Uncontrolled pain Suture Line Care: Avoid Pulling/Pushing Remove Dressing in: 1 week Follow Up Care Test Results: Test results from this visit will be discussed in further detail at your follow- up appointment, if applicable. Discharge Plan Admission Admit Date/Time: 11/12/22 05:19 Primary Reason for Your Visit: c/s Attending Provider: Laura Cohn Primary Care Provider: Shaquille Linares Instructions Forms: Information Patient Instructions: Section () Discharge Orders/Prescriptions Prescriptions: New oxycodone 5 mg tablet 5 mg PO Q4H PRN PRN (Reason: Pain Score 4-10) 3 Days Qty: 10 0RF Rx Instructions: take for pain as needed every 4-6 hours Continued 1 tab PO/SL DAILY iron 1 tab PO/SL DAILY Discontinued aspirin [Adult Low Dose Aspirin] 81 mg tablet,delayed release (DR/EC) 81 mg PO DAILY Referrals / Follow Up: Shaquille Linares MD [Primary Care Provider] - Disposition Disposition (needs filled in before D/C Order can be placed): Home, Self Care
[2022-11-13 08:52] VITALS: BP 112/64; PULSE 73; RESP 16; TEMP 37; O2SAT 97
[2022-11-13] MEDS: Naproxen 500 MG Tablet PO (08:56)
[2022-11-13] MEDS: Senna/Docusate Sodium 1 Tablet PO (08:56)
[2022-11-13 14:21] VITALS: BP 105/58; PULSE 64; RESP 16; TEMP 36.7; O2SAT 97
== END 2022-11-13 15:30 | disposition home or self-care (01) | DRG 788 ==
PROVIDERS: Admitting Provider Obstetrics & Gynecology; PCP Family Medicine; Visit Provider Obstetrics & Gynecology
PROC: 10D00Z1 Extraction of Products of Conception, Low, Open Approach (ICD-10-PCS; CPT 59514; principal; 2022-11-12 06:55)
DX: O34.219 Maternal care for unspecified type scar from previous cesarean delivery (principal); Z37.0 Single live birth; Z79.82 Long term (current) use of aspirin; Z87.891 Personal history of nicotine dependence; Z3A.38 38 weeks gestation of pregnancy
CPT/HCPCS: 59025; 59050; 85025; 85027; 86780; 86850; 86900; 86901; 99221; 99252; J7120; A4216; G0378; G0463; J2405

== ENCOUNTER → 2024-10-16 | Outpatient (CLI) | payer BC, SELFPAY ==
[2024-10-16 17:15] LABS: Absolute Lymphocyte Count 1.58 X10^3/uL (0.83-4.51); Absolute Neutrophil Count 6.3 X10^3/uL (2.0-7.7); Basophil# 0.05 X10^3/uL; Basophil% 0.5 % (0-1); Eosinophil# 0.57 X10^3/uL; Eosinophils% 6.3 % (0-5); Hematocrit 36.8 % (37-47); Hemoglobin 12.4 g/dL (12.0-15.0); Lymphocyte # 1.58 X10^3/ul (0.83-4.51); Lymphocyte % 17.3 % (19-41); Mean Corp Hgb Conc 33.7 g/dL (32-36); Mean Corpuscular Hgb 31.6 pg (27.0-32.0); Mean Corpuscular Volume 93.6 fL (81-99); Monocyte# 0.58 X10^3/uL; Monocyte% 6.4 % (0-10); NRBC Flagged by Analyzer 0 % (0-5); Neutrophil % 69.1 % (47-70); Platelet Count 321 K/mm3 (150-450); RBC Distribution Width CV 12.8 % (11.6-14.6); RBC Distribution Width SD 44.2 fl (35.1-43.9); Red Blood Count 3.93 M/mm3 (4.2-5.4); White Blood Count 9.1 K/mm3 (4.4-11.0)
[2024-10-16 21:05] LABS: Protein, Urine (Random) 6.5 mg/dL (0.0-12.0); Protein:Creat Ratio 155 mg/g CRE (0-200)
[2024-10-16 21:34] LABS: ALB/GLOB Ratio 1.5 RATIO (0.9-2.4); AST(SGOT) 24 U/L (<=31); Alanine Aminotransfer ALT/SGPT 40 U/L (<=34); Albumin, Serum 4.3 g/dL (3.5-5.0); Alkaline Phosphatase 81 U/L (35-104); BUN 15 mg/dL (4-19); BUN/Creat Ratio 24.7 RATIO (10-20); Creatinine, Serum 0.59 mg/dL (0.70-1.20); EST Glomerular Filtration Rate 121 (>60); Globulin 2.8 g/dL (2.2-4.2); Glucose 92 mg/dL (70-99); HIV Nonreactive (Nonreactive); Hepatitis B Surface Antigen Nonreactive (Nonreactive); Hepatitis C Antibody Nonreactive (Nonreactive); Protein, Total 7.1 g/dL (5.9-8.4); Rubella IgG REAC (Nonreactive); Syphilis Antibodies Nonreactive (Nonreactive); Total Bilirubin 0.22 mg/dL (0.00-1.30)
[2024-10-16 22:17] LABS: Anion Gap 11 (5-15); Calcium,Total 9.9 mg/dL (7.6-11.0); Carbon Dioxide 22.7 mmol/L (21.0-32.0); Chloride 102 mmol/L (98-108); Sodium Level 136 mmol/L (133-145)
[2024-10-19 05:07] LABS: Chlamydia By Nucleic Acid AMP Negative (Negative); Gonococcus By Nucleic Acid AMP Negative (Negative)
== END | disposition home or self-care (01) ==
LOC: BWCLAB 15:04
PROVIDERS: PCP Family Medicine; Referring Provider Obstetrics & Gynecology; Visit Provider Obstetrics & Gynecology
DX: O09.90 Supervision of high risk pregnancy, unspecified, unspecified trimester (principal); Z3A.00 Weeks of gestation of pregnancy not specified
CPT/HCPCS: 36415; 80053; 82570; 84156; 85025; 86703; 86762; 86780; 86803; 86850; 86900; 86901; 87086; 87340; 87491; 87591

== ENCOUNTER → 2024-10-23 | Outpatient (CLI) | payer BC, SELFPAY ==
[2024-10-23 17:19] LABS: Absolute Lymphocyte Count 2.01 X10^3/uL (0.83-4.51); Absolute Neutrophil Count 4.8 X10^3/uL (2.0-7.7); Basophil# 0.06 X10^3/uL; Basophil% 0.7 % (0-1); Eosinophil# 0.64 X10^3/uL; Eosinophils% 7.8 % (0-5); Hematocrit 35.6 % (37-47); Hemoglobin 12.2 g/dL (12.0-15.0); Lymphocyte # 2.01 X10^3/ul (0.83-4.51); Lymphocyte % 24.5 % (19-41); Mean Corp Hgb Conc 34.3 g/dL (32-36); Mean Corpuscular Hgb 31.4 pg (27.0-32.0); Mean Corpuscular Volume 91.8 fL (81-99); Mean Platelet Vol. 9.5 fl (6.2-12.0); Monocyte# 0.61 X10^3/uL; Monocyte% 7.4 % (0-10); NRBC Flagged by Analyzer 0 % (0-5); Neutrophil # 4.84 X10^3/uL (2.7-7.7); Neutrophil % 59.2 % (47-70); Platelet Count 315 K/mm3 (150-450); RBC Distribution Width SD 43.1 fl (35.1-43.9); Red Blood Count 3.88 M/mm3 (4.2-5.4); White Blood Count 8.2 K/mm3 (4.4-11.0)
== END | disposition home or self-care (01) ==
LOC: LAB 16:43
PROVIDERS: PCP Family Medicine; Referring Provider Obstetrics & Gynecology; Visit Provider Obstetrics & Gynecology
DX: O09.90 Supervision of high risk pregnancy, unspecified, unspecified trimester (principal); Z3A.00 Weeks of gestation of pregnancy not specified
CPT/HCPCS: 36415; 85025

== ENCOUNTER → 2024-11-21 | Outpatient (CLI) | payer BC, SELFPAY ==
[2024-11-21 12:31] LABS: ALB/GLOB Ratio 1.5 RATIO (0.9-2.4); AST(SGOT) 20 U/L (<=31); Alanine Aminotransfer ALT/SGPT 27 U/L (<=34); Albumin, Serum 4.1 g/dL (3.5-5.0); Alkaline Phosphatase 74 U/L (35-104); Anion Gap 12 (5-15); BUN 10 mg/dL (4-19); BUN/Creat Ratio 17.5 RATIO (10-20); Calcium,Total 9.2 mg/dL (7.6-11.0); Carbon Dioxide 22.4 mmol/L (21.0-32.0); Chloride 103 mmol/L (98-108); Creatinine, Serum 0.58 mg/dL (0.70-1.20); EST Glomerular Filtration Rate 122 (>60); Globulin 2.8 g/dL (2.2-4.2); Glucose 72 mg/dL (70-99); Potassium 4.1 mmol/L (3.3-5.1); Protein, Total 6.8 g/dL (5.9-8.4); Sodium Level 137 mmol/L (133-145); Total Bilirubin 0.34 mg/dL (0.00-1.30)
== END | disposition home or self-care (01) ==
PROVIDERS: PCP Family Medicine; Referring Provider Nurse Practitioner Women's Health; Visit Provider Nurse Practitioner Women's Health
DX: O09.299 Supervision of pregnancy with other poor reproductive or obstetric history, unspecified trimester (principal); Z3A.00 Weeks of gestation of pregnancy not specified
CPT/HCPCS: 36415; 80053

== ENCOUNTER → 2024-12-20 | Outpatient (CLI) | payer BC, SELFPAY ==
[2024-12-20 12:28] LABS: Absolute Lymphocyte Count 1.31 X10^3/uL (0.83-4.51); Absolute Neutrophil Count 5.2 X10^3/uL (2.0-7.7); Basophil# 0.05 X10^3/uL; Basophil% 0.6 % (0-1); Eosinophil# 0.65 X10^3/uL; Eosinophils% 8.4 % (0-5); Hematocrit 35.5 % (37-47); Hemoglobin 11.8 g/dL (12.0-15.0); Lymphocyte # 1.31 X10^3/ul (0.83-4.51); Mean Corp Hgb Conc 33.2 g/dL (32-36); Mean Corpuscular Hgb 31.8 pg (27.0-32.0); Mean Corpuscular Volume 95.7 fL (81-99); Mean Platelet Vol. 9.5 fl (6.2-12.0); Monocyte# 0.47 X10^3/uL; Monocyte% 6.1 % (0-10); NRBC Flagged by Analyzer 0 % (0-5); Neutrophil % 67.4 % (47-70); Platelet Count 316 K/mm3 (150-450); RBC Distribution Width CV 13.5 % (11.6-14.6); RBC Distribution Width SD 47.4 fl (35.1-43.9); Red Blood Count 3.71 M/mm3 (4.2-5.4); White Blood Count 7.7 K/mm3 (4.4-11.0)
[2024-12-20 12:42] LABS: ALB/GLOB Ratio 1.2 RATIO (0.9-2.4); AST(SGOT) 22 U/L (<=31); Alanine Aminotransfer ALT/SGPT 27 U/L (<=34); Albumin, Serum 3.6 g/dL (3.5-5.0); Alkaline Phosphatase 93 U/L (35-104); Anion Gap 9 (5-15); BUN 9 mg/dL (4-19); Calcium,Total 9.4 mg/dL (7.6-11.0); Carbon Dioxide 23.8 mmol/L (21.0-32.0); Chloride 105 mmol/L (98-108); Creatinine, Serum 0.51 mg/dL (0.70-1.20); EST Glomerular Filtration Rate 126 (>60); Globulin 2.9 g/dL (2.2-4.2); Glucose 67 mg/dL (70-99); Potassium 4.3 mmol/L (3.3-5.1); Protein, Total 6.6 g/dL (5.9-8.4); Sodium Level 138 mmol/L (133-145); Total Bilirubin 0.23 mg/dL (0.00-1.30)
== END | disposition home or self-care (01) ==
PROVIDERS: PCP Family Medicine; Referring Provider Obstetrics & Gynecology; Visit Provider Obstetrics & Gynecology
DX: O09.299 Supervision of pregnancy with other poor reproductive or obstetric history, unspecified trimester (principal); Z3A.00 Weeks of gestation of pregnancy not specified
CPT/HCPCS: 36415; 80053; 85025

== ENCOUNTER → 2025-02-14 | Outpatient (CLI) | payer BC, SELFPAY ==
[2025-02-14 09:53] LABS: Hematocrit 31.9 % (37-47); Hemoglobin 10.4 g/dL (12.0-15.0); Immature Granulocytes Count 0.050 X10^3/uL (0.0-0.0); Mean Corp Hgb Conc 32.6 g/dL (32-36); Mean Corpuscular Volume 94.7 fL (81-99); Mean Platelet Vol. 9.5 fl (6.2-12.0); NRBC Flagged by Analyzer 0 % (0-5); Platelet Count 273 K/mm3 (150-450); RBC Distribution Width CV 13.1 % (11.6-14.6); RBC Distribution Width SD 45.0 fl (35.1-43.9); Red Blood Count 3.37 M/mm3 (4.2-5.4); White Blood Count 8.6 K/mm3 (4.4-11.0)
[2025-02-14 10:32] LABS: Glucose Challenge Gest 1H 50g 97 mg/dL (70-140); HIV Nonreactive (Nonreactive); Syphilis Antibodies Nonreactive (Nonreactive)
== END | disposition home or self-care (01) ==
PROVIDERS: PCP Family Medicine; Visit Provider Advanced Practice Midwife
DX: O09.92 Supervision of high risk pregnancy, unspecified, second trimester (principal); Z3A.00 Weeks of gestation of pregnancy not specified; Z13.1 Encounter for screening for diabetes mellitus
CPT/HCPCS: 36415; 82950; 85025; 86703; 86780

== ENCOUNTER → 2025-04-25 | Outpatient (CLI) | payer BC, SELFPAY | END | disposition home or self-care (01) | LOC: LABSPEC 14:31 | PROVIDERS: PCP Family Medicine; Referring Provider Nurse Practitioner Women's Health; Visit Provider Nurse Practitioner Women's Health | DX: O09.92 Supervision of high risk pregnancy, unspecified, second trimester (principal); Z3A.00 Weeks of gestation of pregnancy not specified | CPT/HCPCS: 87081 ==

== ENCOUNTER 2025-05-16 05:26 | Inpatient (IN) | payer BC, SELFPAY ==
[2025-05-16] VITALS (22 sets, daily range): BP systolic 96–125; BP diastolic 51–77; PULSE 60–103; RESP 14–22; TEMP 36.6–37.1; O2SAT 95–100; BMI 28.9
[2025-05-16] MEDS: Lactated Ringers 1,000 ML 999 ML IV (05:40)
[2025-05-16] MEDS: Lactated Ringers 1,000 ML 150 ML IV (05:53)
[2025-05-16 06:09] LABS: Hematocrit 29.4 % (37-47); Hemoglobin 9.2 g/dL (12.0-15.0); Immature Granulocytes Count 0.050 X10^3/uL (0.0-0.0); Mean Corp Hgb Conc 31.3 g/dL (32-36); Mean Corpuscular Volume 83.8 fL (81-99); Mean Platelet Vol. 10.4 fl (6.2-12.0); NRBC Flagged by Analyzer 0 % (0-5); Platelet Count 213 K/mm3 (150-450); RBC Distribution Width CV 14.8 % (11.6-14.6); RBC Distribution Width SD 45.1 fl (35.1-43.9); Red Blood Count 3.51 M/mm3 (4.2-5.4); White Blood Count 9.6 K/mm3 (4.4-11.0)
[2025-05-16 06:25] LABS: Syphilis Antibodies Nonreactive (Nonreactive)
[2025-05-16] MEDS: Cefazolin 1 GM/5 ML Vial 2 GM IV (07:19)
[2025-05-16] MEDS: Lactated Ringers 1,000 ML 1000 ML IV (07:19)
--- NOTE | 2025-05-16 07:21 | HP.PCM.OB_ITS ---
HPI - General General Date of Admission: 05/16/25 HPI Narrative OH LEWIS, is a 34 F who presents for tcs Maternal Data Information MARI Calculator Estimated Delivery Date Method Current WG Current Estimate 05/21/25 LMP (Certain) 39w 2d PFSH PFSH Medical History macrosomia Pre-eclampsia History of macrosomia in in prior , currently Pre-eclampsia during in third trimester, antepartum Recurrent UTI Home Medications ?Medication ?Instructions ?Recorded ?Last Taken ?Type PNV 153-FA 400 mcg-om3 35 mg-dha 1 tab PO DAILY pregna ncy 10/06/24 05/16/25 History 25 mg-epa 5 mg-fish oil chew tablet aspirin 81 mg chewable tablet 81 mg PO QDAY 12/20/24 05/15/25 History ferrous sulfate 325 mg (65 mg 325 mg PO QDAY anemia 05/16/25 History iron) tablet Allergy/AdvReac Type Severity Reaction Status Date / Time No Known Allergies Allergy Verified 05/16/25 05:42 Family History Grandfather Hypertension Maternal Surgical History [place] teeth extracted Delivery by section nitza (~2004) Social History adopted: No household members: spouse housing: house number of children: 2 current occupational status: unemployed current occupation: Stay at home mom current occupational exposures/hazards: No pets and animals: No history of recent travel: No ([place] in February) sexually active: Yes Smoking Status: Never smoker second hand exposure: No alcohol intake: former details: not while substance use type: does not use well-balanced diet: daily or most days caffeine: Yes Type: coffee Number of servings: 1 eating out: 1-3 times/week during the past year weight has: remained stable what type of physical activity do you participate in: none azael/mandaeism: Jain seatbelt use: always do you feel safe at home: Yes additional social history: [employer] History 3 Elective abortions Hx Para 2 Spontaneous abortions Hx # Term Pregnancies Ectopic pregnancies Hx # Pregnancies Multiple births # of living children 2 Past Pregnancies Del. Date Name GA/Weeks Outcome Route Bth Weight Infant Gen Labor Lgth Anesthesia Del Locatn Provider FOB 03/26/21 Mahesh 39 live - full term 9lbs 10oz Male [facility] Balwinder 11/12/22 Martha 39 live - full term 7#5oz Female [facility] SM Delivery Date: 03/26/21 Last Updated by: Megan Zafar IOL for PreE without severe features. csection for arrest of dilation. Delivery Date: 11/12/22 Last Updated by: Megan Zafar RLTCS Visit Details Expected Delivery Route/Plan for repeat section with Plans Covid status: [] Flu vaccine: [] Tdap vaccine: given Rhogam: na LARC form signed: declined movement and labor precautions reviewed. Problem list reviewed and updated with the most current plan of care details and appropriate orders placed. Relevant counseling for the gestational age provided. Continue routine care and follow up unless otherwise noted in visit notes/problem list details OB Flowsheet Initial Weight: Not Recorded Date -?-?-?-?-?-?-?-?-?-?-?-?- EGA Weight BP Urine Prot -?-?-?-?-?-?-?-?-?-?-?-?- Glucose FHR FuHt Pres Dilation -?-?-?-?-?-?-?-?-?-?-?-?- Effaced St Visit Note 10/16/24 -?-?-?-?-?-?-?-?-?-?-?-?- 9w 0d 127 lb 4 oz 116/62 -?-?-?-?-?-?-?-?-?-?-?-?- 170 -?-?-?-?-?-?-?-?-?-?-?-?- JV- CRL consiste nt with LMP. desires nipt. will try today due to low bmi. 11/21/24 -?-?-?-?-?-?-?-?-?-?-?-?- 14w 1d 131 lb 4 oz 107/74 Nega tive -?-?-?-?-?-?-?-?-?-?-?-?- Negative 153 -?-?-?-?-?-?-?-?-?-?-?-?- MH-No VB. CMP ne eds repeated. Nausea improved. Brief US confirm FHT. 12/20/24 -?-?-?-?-?-?-?-?-?-?-?-?- 18w 2d 191 lb 106/70 Negative -?-?-?-?-?-?-?-?-?-?-?-?- Negative 150 18 -?-?-?-?-?-?-?-?-?-?-?-?- SM- no vb lof cr amping 01/19/25 -?-?-?-?-?-?-?-?-?-?-?-?- 22w 4d 141 lb 8 oz 112/69 Nega tive -?-?-?-?-?-?-?-?-?-?-?-?- Negative 160 22 -?-?-?-?-?-?-?-?-?-?-?-?- KW- no vb/lof/ct x. good fm. KW- no vb/lof/ctx. good fm. glucose next visit. 02/14/25 -?-?-?-?-?-?-?-?-?-?-?-?- 26w 2d 146 lb 6 oz 108/64 Nega tive -?-?-?-?-?-?-?-?-?-?-?-?- Negative 150 26 -?-?-?-?-?-?-?-?-?-?-?-?- SM- no vb lof go od fm nor egular ctx cbc gct 03/06/25 -?--?-?-?-?-?-?-?-?-?-?-?- 29w 1d 149 lb 6 oz 108/64 Nega tive -?-?-?-?-?-?-?-?-?-?-?-?- Negative 145 31 -?-?-?-?-?-?-?-?-?-?-?-?- SM- no vb lof go od fm no reuglar ctx larc signed 03/20/25 -?-?-?-?-?-?-?-?-?-?-?-?- 31w 1d 152 lb 104/68 Negative -?-?-?-?-?-?-?-?-?-?-?-?- Negative 135 31 -?-?-?-?-?-?-?-?-?-?-?-?- JV- no lof, vagi nal bleeding, or dec fm. no complaints today. 04/04/25 -?-?-?-?-?-?-?-?-?-?-?-?- 33w 2d 156 lb 2 oz 114/65 Nega tive -?-?-?-?-?-?-?-?-?-?-?-?- Negative 139 33 -?-?-?-?-?-?-?-?-?-?-?-?- JV- lof, vaginal bleeding, or dec fm. minor indigestion. 04/19/25 -?-?-?-?-?-?-?-?-?-?-?-?- 35w 3d 158 lb 7 oz 120/68 -?-?-?-?-?-?-?-?-?-?-?-?- 145 34 -?-?-?-?-?-?-?-?-?-?-?-?- SM- no vb lof go od fm n oreuglar ctx 04/25/25 -?-?-?-?-?-?-?-?-?-?-?-?- 36w 2d 160 lb 5 oz 104/68 Nega tive -?-?-?-?-?-?-?-?-?-?-?-?- Negative 146 36 0 -?-?-?-?-?-?-?-?-?-?-?--?- MH-No VB, LOF. G ood FM. More pressure and irreg CTX. GBS 05/02/25 -?-?-?-?-?-?-?-?-?-?-?-?- 37w 2d 158 lb 5 oz 126/66 Nega tive -?-?-?-?-?-?-?-?-?-?--?-?- Negative 140 37 -?-?-?-?-?-?-?-?-?-?-?-?- SM- no vb lof go od fm n oregular ctx 05/09/25 -?-?-?-?-?-?-?-?-?-?-?-?- 38w 2d 162 lb 2 oz 117/79 Nega tive -?-?-?-?-?-?-?-?-?-?-?-?- Negative 160 38 Cephalic -?-?-?-?-?-?-?-?-?-?-?-?- SM- no vb lof go od fm no regular ctx preo ppapers given and signed consent NST FHR Rate Baby A Baseline: 130 Variability:: Moderate Accelerations:: 15 x 15 Decelerations:: None NST Reactive:: Yes FHR Category:: Category I Uterine Activity:: irregular ROS Constitutional Constitutional: Reports systems reviewed and no addt'l complaints, except as documented Eyes Eyes: Denies change in vision ENT HEENT: Reports systems reviewed and no addt'l complaints, except as documented; Denies headache(s) Cardiovascular Cardiovascular: Reports systems reviewed and no addt'l complaints, except as documented; Denies chest pain or dyspnea Respiratory/Chest Respiratory/Chest: Reports systems reviewed and no addt'l complaints, except as documented Gastrointestinal Gastrointestinal: Reports systems reviewed and no addt'l complaints, except as documented; Denies abdominal pain Genitourinary Genitourinary: Reports systems reviewed and no addt'l complaints, except as documented, contractions Details: present (irregular) and movement Details: present; Denies dysuria or genital lesions Musculoskeletal Musculoskeletal: Reports systems reviewed and no addt'l complaints, except as documented Neurologic Neurologic: Reports systems reviewed and no addt'l complaints, except as documented Endocrine Endocrinology: Reports systems reviewed and no addt'l complaints, except as documented Vital Signs Vital Signs Vital Signs: 05/16/25 05:57 Temperature 98.1 F Temperature Source Temporal Pulse Rate 103 H Respiratory Rate 16 Blood Pressure 110/77 Blood Pressure Mean 88 Blood Pressure Source Monitor Blood Pressure Position Semi-Fowlers Blood Pressure Location Right Arm Pulse Ox 100 Oxygen Delivery Method Room Air Weight Weight: 163 lb 2.273 oz Body Mass Index (BMI) 28.9 Physical Exam Const alert, oriented x3, no apparent distress and healthy appearing HEENT normocephalic and moist oral mucous membranes Head and Scalp: atraumatic Neck full ROM, no lymphadenopathy, supple and thyroid normal General: trachea midline Lymph Lymphatic: no lymphadenopathy noted Chest inspection of chest normal Resp normal respiratory effort Cardio regular rate GI soft to palpation and non-tender GI Narrative: gravid Inspection: gravid external exam normal Manual OB Exam: estimated gestational size appropriate, presentation cephalic, dilated, effaced and station Extremity normal to inspection General Extremity: Negative for edema Skin no rashes or lesions noted Neuro no focal motor deficits and deep tendon reflexes 2+ bilaterally Motor Exam: strength 5/5 throughout and clonus absent Psych mental status grossly normal Labs Labs Labs: Blood Type A POSITIVE Antibody Screen NEGATIVE Hct, (37-47) 29.4 % L Hgb, (12.0-15.0) 9.2 g/dL L Syphilis Total Ab, (Nonreactive) Nonreactive Rubella IgG Antibody, (Nonreactive) REAC Hep Bs Antigen, (Nonreactive) Nonreactive Hepatitis C Antibody, (Nonreactive) Nonreactive Chlamydia DNA (FAHAD), (Negative) Negative N.gonorrhoeae DNA (FAHAD), (Negative) Negative HIV 1&2 Antibody, (Nonreactive) Nonreactive Glucose 1 Hr 50 gm, (70-140) 97 mg/dL Rhogam given: No Miscellaneous Test Assessment & Plan (1) Anemia affecting : QUALIFIERS: Trimester: third trimester Qualified Code(s): O99.013 - Anemia complicating , third trimester COMMENT: po iron (2) Elevated ALT measurement: COMMENT: 40 @ NOB. Rpt: nl 27 (3) Supervision of high-risk : QUALIFIERS: Trimester: second trimester Qualified Code(s): O09.92 - Supervision of high risk , unspecified, second trimester COMMENT: [id number], MARI 05/21/25, Martha Uriarte, Roberto (4) : QUALIFIERS: Weeks of gestation: 38 weeks Qualified Code(s): Z3A.38 - 38 weeks gestation of COMMENT: GBS neg. NIPT low risk (5) History of 2 sections: COMMENT: for rpt may 14-0ct6, RLTCS 05/16 @ 0715. (6) Hx of pre-eclampsia in prior , currently : COMMENT: 1st (7) delivery delivered: COMMENT: AGNIESZKA RLTCS 39 PLAN: Plan plan rltcs
[2025-05-16] MEDS: morphine PF (epidural) 5 MG/10 ML Vial IV (07:29)
[2025-05-16] MEDS: TRANEXAMIC ACID 1,000 MG/10 ML ML 1000 MG IV (07:35)
--- NOTE | 2025-05-16 08:31 | EX.PCM.OBRPT ---
Assessment & Plan (1) delivery delivered: COMMENT: RLTCS 39 (2) Anemia affecting : QUALIFIERS: Trimester: third trimester Qualified Code(s): O99.013 - Anemia complicating , third trimester COMMENT: po iron (3) Elevated ALT measurement: COMMENT: 40 @ NOB. Rpt: nl 27 (4) Supervision of high-risk : QUALIFIERS: Trimester: second trimester Qualified Code(s): O09.92 - Supervision of high risk , unspecified, second trimester COMMENT: [id number], MARI 05/21/25, Martha Uriarte, Roberto (5) : QUALIFIERS: Weeks of gestation: 38 weeks Qualified Code(s): Z3A.38 - 38 weeks gestation of COMMENT: GBS neg. NIPT low risk (6) History of 2 sections: COMMENT: for [facility] may 14-ct6, RLTCS 05/16 @ 0715. (7) Hx of pre-eclampsia in prior , currently : COMMENT: 1st Maternal Data Information MARI Calculator Estimated Delivery Date Method Current WG Current Estimate 05/21/25 LMP (Certain) 39w 2d Operative Report (OB) Procedure Details Date of Procedure: 05/16/25 Procedure Start Time: 07:42 Pre-Operative Diagnosis: Other Other Pre-Operative diagnosis: see a/p comments Post-Operative Diagnosis: Same as Pre-operative diagnosis Classification: Scheduled Type of Anesthesia: Spinal Special Medications: none Antibiotic Given: Ancef 2 grams IV x1 Drain: Curry to straight drain Estimated Blood Loss: 600 Fluids Replaced: crystalloid Findings Description of surgery: Spinal anesthesia was placed without difficulty. Curry catheter was placed. The patient was placed in the dorsal supine position with leftward tilt. Patient was prepped and draped in the normal sterile fashion. Pfannenstiel skin incision was made with the scalpel and carried through to the underlying layer of fascia with the scalpel. Fascia was nicked in the midline and the incision extended laterally. The rectus bellies were dissected off superiorly and inferiorly with out complication both sharply and bluntly. The peritoneum was entered digitally. The incision was stretched and a low transverse uterine incision was made with the scalpel. The 's head was delivered atraumatically followed by the anterior and posterior shoulders without complication the rest of the delivered. The cord was clamped and cut and the infant was handed off to awaiting nurse. The placenta was delivered spontaneously immediately following and was noted to be intact and have a three-vessel cord. The uterus was exteriorized cleared of all clots and debris, and the incision was closed in a single layer closure using #1 Monocryl, additional stitch placed on the right afia efor hemoastasis and hemoblast used. The ovaries and fallopian tubes were noted to be within normal limits. Patient had desired sterilization and was counseled preoperatively regarding irreversibility and permanency. Therefore bilateral fallopian tubes were elevated and transected across using a LigaSure device starting proximally to distally without complication the entire fallopian tubes were removed. The uterus was returned to the maternal abdomen and gutters were cleared of all clots and debris. The peritoneum was closed with 3-0 Monocryl in a running fashion. Gloves were changed prior to fascial closure. muscles had some oozing and were cauterized and treated with hemoblast. Fascia was closed with 0 PDS in a running fashion. Subcutaneous tissue was copiously irrigated and the skin was closed with 3-0 Monocryl in a subcuticular fashion. Mepilex dressing was applied without complication. Patient was taken to recovery in stable condition. Surgical findings: vertex , abdominla wall scarring Presentation: Vertex Amniotic Membrane Rupture Type: Artificial Amniotic Fluid Description: Clear Specimen collected: Yes Description of specimen(s) removed: placenta and baby Cord Vessel Description: 3 Vessels Delayed Cord Clamping: Yes Wood Heel Flap Trimmer sheet rock taper helper: Yes Acid Bath Mixer: Angel [place] Tasks completed by supply chain assistant: Opening & closing, Retracting and Other (assisting in delivery of the infant) Additional assistant executive housekeeper?: No Complications Complications: No Admit VTE Documentation VTE Present on Admission: No VTE Mechan Device Prophylaxis: SCD's Procedures Urinary/Genital 52xxx-59xxx: [id number] Delivery [facility]
--- NOTE | 2025-05-16 08:34 | DCINST_ITS ---
Discharge Instructions DC O2, CPAP, BIPAP needs Home O2 Discharge instructions: No Follow Up Care Test Results: Test results from this visit will be discussed in further detail at your follow- up appointment, if applicable. Discharge Plan Admission Admit Date/Time: 05/16/25 05:20 Attending Provider: Laura Cohn Primary Care Provider: Shaquille Linares Discharge Orders/Prescriptions Prescriptions: No Action PNV no.[id number] 400 mcg-35 mg- 25 mg-5 mg tablet,chewable 1 tab PO DAILY aspirin 81 mg tablet,chewable 81 mg PO QDAY ferrous sulfate 325 mg (65 mg iron) tablet 325 mg PO QDAY Referrals / Follow Up: Shaquille Linares MD [Primary Care Provider, Family Practice] Disposition Disposition (needs filled in before D/C Order can be placed): Home, Self Care
[2025-05-16] MEDS: Oxytocin 15 Units/NS 250ml 15 UNITS/250 ML IV.SOLN 83 UNITS IV (08:45)
[2025-05-16] MEDS: Ketorolac 30 MG/ML Syringe IV ×3 (09:15→21:11)
--- NOTE | 2025-05-16 09:19 | FALS_PTH ---
PATIENT: OH LEWIS LOC: [facility] U#:[id number] AGE/SX: 34/F ROOM: [facility] RE05/16/[address]: Dr. Laura Cohn MD : 1990 BED: 1 DIS: 05/18/2025 SPEC #: [id number] RECD: 05/16/25 09:29 STATUS: LUPILLO LYLE #: [id number] MANSOOR: 05/16/25 09:[address]: Laura Cohn DEPT: SURGICAL PATHOLOGY RECD BY: Clinton Munguia ENTERED: 05/16/25 15:01 SP TYPE: FALL TUBES OTHR DR: Dr. Shaquille Linares MD Tissues: A - Fallopian tube Procedures: Surgery Specimen Level II HEADER OPERATION: Repeat section PRE-OP DIAGNOSIS: Confirmation TISSUE SUBMITTED: A- Bilateral fallopian tubes - suture in left tube MICROSCOPIC DIAGNOSIS A. Fallopian tubes, resection: * No specific pathologic change (complete luminal cross-section confirmed), left (A1). * No specific pathologic change (complete luminal cross-section confirmed), right (A2). MICROSCOPIC DESCRIPTION Slides are reviewed. GROSS DESCRIPTION A. Received in formalin labeled with the patient's name and date of . Designated as stitch in left are 2 pink-red to purple fimbriated fallopian tubes. There is a suture designated as left. The tubes measure 7.7 x 0.7 cm (left) and 10.3 x 0.8 cm (right). Oracle Engineer sections are submitted in 2 cassettes as follows: A1: Left fallopian tubeA2: Right fallopian tube MN 05/16/2025 A. Additional installation service representative cross-sections of the longer fallopian tube are submitted in cassette A3, following histopathologic review. MN 05/24/2025 CPT:19715g6
[2025-05-16 09:28] LABS: Pathology Specimen OB SEE PATHOLOGY REPORT
[2025-05-16] MEDS: Lactated Ringers 1,000 ML 100 ML IV (11:51)
[2025-05-16 15:08] LABS: Hematocrit 29.6 % (37-47); Hemoglobin 9.0 g/dL (12.0-15.0); Mean Corp Hgb Conc 30.4 g/dL (32-36); Mean Corpuscular Volume 85.5 fL (81-99); Mean Platelet Vol. 10.3 fl (6.2-12.0); Platelet Count 238 K/mm3 (150-450); RBC Distribution Width CV 14.7 % (11.6-14.6); RBC Distribution Width SD 45.3 fl (35.1-43.9); Red Blood Count 3.46 M/mm3 (4.2-5.4); White Blood Count 13.7 K/mm3 (4.4-11.0)
[2025-05-16] MEDS: 0.9% Saline Lock 10 ML Syringe IV (21:11)
[2025-05-17 00:05] VITALS: BP 108/59; PULSE 60; RESP 16; TEMP 36.7; O2SAT 95
[2025-05-17] MEDS: 0.9% Saline Lock 10 ML Syringe IV (03:15)
[2025-05-17] MEDS: Ketorolac 30 MG/ML Syringe IV (03:15)
[2025-05-17 03:21] VITALS: BP 100/47; PULSE 65; RESP 18; TEMP 36.6; O2SAT 99
[2025-05-17 06:28] LABS: Hematocrit 26.0 % (37-47); Hemoglobin 8.0 g/dL (12.0-15.0); Mean Corp Hgb Conc 30.8 g/dL (32-36); Mean Corpuscular Volume 85.5 fL (81-99); Mean Platelet Vol. 9.9 fl (6.2-12.0); Platelet Count 198 K/mm3 (150-450); RBC Distribution Width CV 14.9 % (11.6-14.6); RBC Distribution Width SD 45.8 fl (35.1-43.9); Red Blood Count 3.04 M/mm3 (4.2-5.4); White Blood Count 11.9 K/mm3 (4.4-11.0)
--- NOTE | 2025-05-17 07:29 | PCM.PN.OB ---
Subjective Subjective Patient doing well without complaints. Tolerating PO. Ambulating and voiding without difficulty. feeding well. Denies chest pain, shortness of breath, calf pain/swelling, fevers, chills, lightheadedness. Objective Data Objective Data Vital Signs: Vital Signs Temp Pulse Resp BP Pulse Ox O2 Del Method 97.8 F 65 18 100/47 L 99 Room Air 05/17/25 03:21 05/17/25 03:21 05/17/25 03:21 05/17/25 03:21 05/17/25 03:21 05/17/25 03:21 Oxygen Delivery Method Room Air Weight: 163 lb 2.273 oz Body Mass Index (BMI) 28.9 Intake & Output: Intake and Output for Last 24 Hours 05/15/25 05/16/25 05/17/25 23:59 23:59 23:59 Intake Total 1648.17 / 1648.17 Output Total 3800 / 3800 Balance -2151.83 / -2151.83 Lab / Micro Data 05/17/25 06:15 Labs: Laboratory Results - last 24 hr 05/16/25 14:45: WBC 13.7 H, RBC 3.46 L, Hgb 9.0 L, Hct 29.6 L, MCV 85.5, MCH 26.0 L, MCHC 30.4 L, RDW Std Deviation 45.3 H, RDW Coeff of Judi 14.7 H, Plt Count 238, MPV 10.3 05/17/25 06:15: WBC 11.9 H, RBC 3.04 L, Hgb 8.0 L, Hct 26.0 L, MCV 85.5, MCH 26.3 L, MCHC 30.8 L, RDW Std Deviation 45.8 H, RDW Coeff of Judi 14.9 H, Plt Count 198, MPV 9.9 ROS Constitutional Constitutional: Reports systems reviewed and no addt'l complaints, except as documented Cardiovascular Cardiovascular: Reports systems reviewed and no addt'l complaints, except as documented Respiratory/Chest Respiratory/Chest: Reports systems reviewed and no addt'l complaints, except as documented Gastrointestinal Gastrointestinal: Reports systems reviewed and no addt'l complaints, except as documented Physical Exam Const alert, oriented x3 and no apparent distress HEENT Head and Scalp: atraumatic Resp normal respiratory effort GI soft to palpation and non-tender Inspection: incision intact, healing well and drainage (none) Bimanual Exam - Vag & Uterus: uterus non-tender Uterus Palpation: uterus fundus firm (below Umbilicus) Assessment & Plan (1) delivery delivered: COMMENT: RLTCS 39 (2) Anemia affecting : QUALIFIERS: Trimester: third trimester Qualified Code(s): O99.013 - Anemia complicating , third trimester COMMENT: po iron PLAN: Plan s/p LTCS PPD # 1 1. routine post care 2. breast feeding- support given 3. rh positive 4. rubella immune
[2025-05-17 08:38] VITALS: BP 114/81; PULSE 78; RESP 16; TEMP 36.2
[2025-05-17] MEDS: Senna/Docusate Sodium 1 Tablet PO (10:01)
[2025-05-17 14:45] VITALS: BP 113/69; PULSE 64; RESP 16
[2025-05-17 19:57] VITALS: BP 130/62; PULSE 79; RESP 16; TEMP 36.3; O2SAT 100
[2025-05-18 02:00] VITALS: BP 125/79; PULSE 70; RESP 17; TEMP 36.4; O2SAT 99
[2025-05-18 09:01] VITALS: BP 119/73; PULSE 70; RESP 16; TEMP 36.2; O2SAT 100
[2025-05-18 09:15] VITALS: PULSE 70
[2025-05-18] MEDS: Senna/Docusate Sodium 1 Tablet PO (10:16)
--- NOTE | 2025-05-18 10:20 | PCM.PN.OB ---
Subjective Subjective Patient doing well without complaints. Tolerating PO. Ambulating and voiding without difficulty. feeding well. Denies chest pain, shortness of breath, calf pain/swelling, fevers, chills, lightheadedness. Objective Data Objective Data Vital Signs: Vital Signs Temp Pulse Resp BP Pulse Ox O2 Del Method 97.2 F L 70 16 119/73 100 Room Air 05/18/25 09:01 05/18/25 09:15 05/18/25 09:01 05/18/25 09:01 05/18/25 09:01 05/18/25 09:01 Oxygen Delivery Method Room Air Weight: 163 lb 2.273 oz Body Mass Index (BMI) 28.9 Intake & Output: Intake and Output for Last 24 Hours 05/16/25 05/17/25 05/18/25 23:59 23:59 23:59 Intake Total 1648.17 / 1648.17 Output Total 3800 / 3800 Balance -2151.83 / -2151.83 Lab / Micro Data 05/17/25 06:15 Labs: Laboratory Results - last 24 hr 05/16/25 14:45: WBC 13.7 H, RBC 3.46 L, Hgb 9.0 L, Hct 29.6 L, MCV 85.5, MCH 26.0 L, MCHC 30.4 L, RDW Std Deviation 45.3 H, RDW Coeff of Judi 14.7 H, Plt Count 238, MPV 10.3 05/17/25 06:15: WBC 11.9 H, RBC 3.04 L, Hgb 8.0 L, Hct 26.0 L, MCV 85.5, MCH 26.3 L, MCHC 30.8 L, RDW Std Deviation 45.8 H, RDW Coeff of Judi 14.9 H, Plt Count 198, MPV 9.9 ROS Constitutional Constitutional: Reports systems reviewed and no addt'l complaints, except as documented Cardiovascular Cardiovascular: Reports systems reviewed and no addt'l complaints, except as documented Respiratory/Chest Respiratory/Chest: Reports systems reviewed and no addt'l complaints, except as documented Gastrointestinal Gastrointestinal: Reports systems reviewed and no addt'l complaints, except as documented Physical Exam Const alert, oriented x3 and no apparent distress HEENT Head and Scalp: atraumatic Resp normal respiratory effort GI soft to palpation and non-tender Inspection: incision intact, healing well and drainage (none) Bimanual Exam - Vag & Uterus: uterus non-tender Uterus Palpation: uterus fundus firm (below Umbilicus) Assessment & Plan (1) delivery delivered: COMMENT: RLTCS 39 (2) Anemia affecting : QUALIFIERS: Trimester: third trimester Qualified Code(s): O99.013 - Anemia complicating , third trimester COMMENT: po iron PLAN: Plan s/p LTCS PPD # 2 1. routine post care 2. breast feeding- support given 3. rh positive 4. rubella immune
--- NOTE | 2025-05-18 10:26 | PCM.DC.SUM ---
Providers Date of Admission: 05/16/25 Primary Care Physician: Dr. Shaquille Linares MD Reason For Visit: SCHEDULED C SECTION/CSECTION DELIVERY Diagnosis Discharge Diagnosis (1) delivery delivered: Status: Acute Code(s): O82 - Encounter for delivery without indication (2) Anemia affecting : Status: Acute Code(s): O99.019 - Anemia complicating , unspecified trimester Qualifiers: Trimester: third trimester Qualified Code(s): O99.013 - Anemia complicating , third trimester Plan s/p LTCS PPD # 2 1. routine post care 2. breast feeding- support given 3. rh positive 4. rubella immune Medications at Discharge Home Medications PNV 153-FA 400 mcg-om3 35 mg-dha 25 mg-epa 5 mg-fish oil chew tablet 1 tab PO DAILY 10/06/24 aspirin 81 mg chewable tablet 81 mg PO QDAY 12/20/24 ferrous sulfate 325 mg (65 mg iron) tablet 325 mg PO QDAY anemia 03/06/25 naproxen 500 mg tablet 500 mg PO BID PRN PRN Pain #30 tabs 05/17/25 oxycodone-acetaminophen 5 mg-325 mg tablet (Percocet) 1 tab PO Q4H PRN pain 7 days #20 tabs 05/17/25 Hospital Course Summary of Care Provided Hospital Course: admitted for [facility] LT went routine recovery d c home ppd 2 Weight / BMI Weight Weight: 163 lb 2.273 oz Body Mass Index (BMI) 28.9 ABG / Lab / Microbiology Data 05/17/25 06:15 D/C Instructions DC O2, CPAP, BIPAP Needs Home O2 Discharge instructions: No Meaningful Use Info Meaningful Use Meaningful Use Diagnoses (Choose all that apply): None applicable Discharge Plan Admission Admit Date/Time: 05/16/25 05:26 Attending Provider: Laura Cohn Primary Care Provider: Shaquille Linares Discharge Orders/Prescriptions Prescriptions: New oxycodone-acetaminophen [Percocet] 5-325 mg tablet 1 tab PO Q4H PRN (Reason: pain) 7 Days Qty: 20 0RF naproxen 500 mg tablet 500 mg PO BID PRN PRN (Reason: Pain) Qty: 30 1RF No Action PNV no.[id number] 400 mcg-35 mg- 25 mg-5 mg tablet,chewable 1 tab PO DAILY aspirin 81 mg tablet,chewable 81 mg PO QDAY ferrous sulfate 325 mg (65 mg iron) tablet 325 mg PO QDAY Referrals / Follow Up: Shaquille Linares MD [Primary Care Provider, Family Practice] Disposition Disposition (needs filled in before D/C Order can be placed): Home, Self Care
== END 2025-05-18 13:00 | disposition home or self-care (01) | DRG 785 ==
PROVIDERS: Admitting Provider Obstetrics & Gynecology; PCP Family Medicine; Referring Provider Obstetrics & Gynecology; Visit Provider Obstetrics & Gynecology
PROC: 10D00Z1 Extraction of Products of Conception, Low, Open Approach (ICD-10-PCS; CPT 59514; principal; 2025-05-16 07:00)
DX: O34.211 Maternal care for low transverse scar from previous cesarean delivery (principal); D64.9 Anemia, unspecified; Z30.2 Encounter for sterilization; O99.02 Anemia complicating childbirth; Z37.0 Single live birth; Z3A.38 38 weeks gestation of pregnancy
CPT/HCPCS: 59050; 85025; 85027; 86780; 86850; 86900; 86901; 88302; 99221; A4216; G0378; J2405

== ENCOUNTER → 2025-06-27 | Outpatient (CLI) | payer BC, SELFPAY ==
[2025-06-27 16:49] LABS: Hematocrit 40.0 % (37-47); Hemoglobin 12.3 g/dL (12.0-15.0); Immature Granulocytes Count 0.010 X10^3/uL (0.0-0.0); Mean Corp Hgb Conc 30.8 g/dL (32-36); Mean Corpuscular Volume 83.9 fL (81-99); Mean Platelet Vol. 9.7 fl (6.2-12.0); NRBC Flagged by Analyzer 0 % (0-5); Platelet Count 290 K/mm3 (150-450); RBC Distribution Width CV 16.3 % (11.6-14.6); RBC Distribution Width SD 50.1 fl (35.1-43.9); Red Blood Count 4.77 M/mm3 (4.2-5.4); White Blood Count 6.7 K/mm3 (4.4-11.0)
[2025-06-27 18:05] LABS: hCG Titer Quant., Serum < 1 mIU/mL (<9 non-preg)
== END | disposition home or self-care (01) ==
PROVIDERS: PCP Family Medicine; Visit Provider Obstetrics & Gynecology
DX: O72.1 Other immediate postpartum hemorrhage (principal)
CPT/HCPCS: 36415; 84443; 84702; 85025